=== PATIENT | female | born 1970 | race American Indian/Alaskan Native ===

== ENCOUNTER 2024-10-11 15:15 | Outpatient (REF) | payer MEDICAID, SELFPAY ==
--- OUTSIDE RECORDS SUMMARY | 2024-10-11 15:16 | XMS_ITS | Encounter Summary ---
Author Organization [employer] Address [address] [facility] 7t [place] [address] Care Team Providers Care Makeup Instructor Name Role Phone Tasha Benson MD Primary Care Provider + Yung Lindo MD Primary Care Provider [phone] Reason for Visit * Reason Comments Med Refill Encounter Details Date Type Department Care Team (Late st Contact Info) Description 02/16/2023 Refill [facility] CH[facility] MED & PEDS [address] [place], [place] [phone] Marita Kowalski DO [address] [place], [place] [phone] Hyperlipidemia, unspecified hyperlipidemia type Social History Tobacco Use Types Packs/Day Years Used Date Smoking Tobacco: Never Assessed Comments Unknown Sex and Gender Information Value Date Recorded Sex Assigned at Female 02/21/2022 10:15 AM EDT Legal Sex Female 10:15 AM EDT Gender Identity Female 02/21/2022 10:15 AM EDT Sexual Orientation Straight 02/21/2022 10 :15 AM EDT documented as of this encounter Plan of Treatment Upcoming Encounters Date Type Department Care Team (Late Contact Info) Description 11/04/2024 1:00 PM EDT Clinical Support [facility] DIABETES/NUTRITION [address] [place], [place] [phone] [address] [place] [address] 12/20/2024 11:15 AM EDT Office Visit [facility] MEDICINE [address] [place] [address] Name, MD Yung [address] [place] [address] 01/09/2025 2:00 PM EDT Office Visit [facility] OPTOMETRY [address] [place] [address] Sawyer, Deanna, OD [address] [place] [address] documented as of this encounter Visit Diagnoses Diagnosis Hyperlipidemia, unspecified hyperlipidemia type documented in this encounter Care Teams Makeup Instructor Relationship Specialty Start Date End Date Tasha Benson MD [address] [place] [phone] PCP - General Internal Medicine 08/10/23 10/22/23 Name, MD Yung [address] [place] [id number] PCP - General Internal Medicine 10/23/23 documented as of this encounter
[2024-10-11 16:08] LABS: MANUAL DIFF FLAG NO
[2024-10-11 16:15] LABS: Basophils Absolute Auto 0.1 X10*3/uL (0.0-0.2); Basophils Percent Auto 0.4 % (0-2); Eosinophils Absolute Auto 0.1 X10*3/uL (0.0-0.4); Eosinophils Percent Auto 0.7 % (0-4); Hematocrit 46.6 % (37.0-47.0); Hemoglobin 14.9 g/dl (12.0-16.0); Imm Gran Abs Auto 0.07 X10*3/uL (0.00-0.03); Imm Gran Pct Auto 0.6 % (0.0-0.4); Lymphocytes Absolute Auto 2.9 X10*3/uL (1.2-4.9); Lymphocytes Percent Auto 23.9 % (20-40); Mean Corpuscular Hemoglobin 29.5 pg (27.0-33.0); Mean Corpuscular Volume 92.3 fL (80.0-98.0); Mean Platelet Volume 11.2 fL (9.4-12.3); Monocytes Absolute Auto 0.9 X10*3/uL (0.1-1.2); Monocytes Percent Auto 7.4 % (2-11); Neutrophils Absolute Auto 8.1 x10*3/uL (2.0-8.3); Platelet Count 289 X10*3/uL (160-400); Red Blood Count 5.05 X10*6/uL (4.20-5.50); Red Cell Distribution Width 14.2 % (11.0-16.0); White Blood Count 12.1 X10*3/uL (4.8-10.8)
[2024-10-11 16:21] LABS: Appearance Urine Cloudy; Color Urine Dark Yellow; Glucose Urine UA Negative (Negative); Leukocyte Esterase Urine Trace (Negative); Nitrite Urine Negative (Negative); PH 5.5 (5.0-9.0); Specific Gravity - Urine 1.025 (1.005-1.025); UMIC TRIGGER UACC YES; Urine Blood Negative (Negative); Urine Ketones 15 mg/dL (Negative); Urine Protein 100 (2+) mg/dL (Neg-Trace)
[2024-10-11 16:33] LABS: Alanine Aminotransferase 60 U/L (0-31); Alkaline Phosphatase 126 U/L (39-117); Anion Gap 16 (12-20); Aspartate Amino Transferase 74 U/L (5-31); Bilirubin Total 0.8 mg/dL (0.0-1.0); Blood Urea Nitrogen 11 mg/dL (9-16); Calcium 9.4 mg/dL (8.4-10.2); Carbon Dioxide 25 mmol/L (22-29); Chloride 104 mmol/L (96-108); Cholesterol 215 mg/dL (<200); Estimated Glomerular Filt Rate 53; Glucose Random 136 mg/dL (60-115); HDL Cholesterol 47 mg/dL (>40); Iron 159 mcg/dL (30-160); LDL Cholesterol Calculated 139 mg/dL (<100); Percent Iron Saturation 45 % (15-50); Sodium 141 mmol/L (135-145); Total Iron Binding Capacity 353 mcg/dL (228-428); Total Protein 7.9 g/dL (6.5-8.0); Triglycerides 146 mg/dL (<150); Unsaturated Iron Binding 194 ug/dL
[2024-10-11 16:35] LABS: Estimated Average Glucose 137 mg/dL; Hemoglobin A1c % 6.4 % (<6.0); Total Hemoglobin (HGBA1C) 3911.4732 umol/L
[2024-10-11 16:51] LABS: Ferritin 128 ng/mL (10-250); TSH reflex Free T4 4.63 uIU/mL (0.32-4.0); Vitamin D 25-OH Total 11.3 ng/mL (>30)
[2024-10-11 16:55] LABS: Bacteria Urine 1+ (None Seen); Hyaline Casts Urine >20 /LPF (0-2); RBC Urine 0-2 /HPF (0-2); Squamous Epithelial Cell Urine >20 /HPF (0-2); UACC Culture Trigger YES
[2024-10-11 18:07] LABS: Free T4 (Free Thyroxine) 0.96 ng/dL (0.71-1.85)
== END 2024-10-11 15:16 | disposition home or self-care (01) ==
LOC: HO.HHCL 15:15
PROVIDERS: Visit Provider Internal Medicine Geriatric Medicine
DX: E66.01 Morbid (severe) obesity due to excess calories (principal); E03.9 Hypothyroidism, unspecified; F39 Unspecified mood [affective] disorder; Z68.44 Body mass index [BMI] 60.0-69.9, adult; M25.561 Pain in right knee; M25.562 Pain in left knee; G89.29 Other chronic pain; E78.5 Hyperlipidemia, unspecified; J45.20 Mild intermittent asthma, uncomplicated; R32 Unspecified urinary incontinence; Z86.2 Personal history of diseases of the blood and blood-forming organs and certain disorders involving the immune mechanism
CPT/HCPCS: 36415; 80053; 80061; 81001; 82306; 82728; 83036; 83540; 84439; 84443; 85025; 87086

== ENCOUNTER 2024-12-20 12:13 | Outpatient (REF) | payer MEDICAID, SELFPAY ==
--- NOTE | ~2024-12-20 | XR_ITS ---
Exam: X-ray, bilateral knees.XR KNEE 3 VIEWS BILATERAL TECHNIQUE: 3 view lower extremity joint, bilateral knees INDICATION: Chronic bilateral knee pain COMPARISON: None available. FINDINGS: RIGHT KNEE: There is moderate medial joint space narrowing. There are moderate medial joint space osteophytes. There are small patellofemoral joint osteophytes. There are minute lateral compartment osteophytes. There is no joint effusion. LEFT KNEE: There is moderate narrowing of the medial compartment and minimal narrowing of the lateral. There is mild lateral subluxation of tibia. Moderate osteophytes present along the medial joint line and patellofemoral joint. Small volume of synovial fluid is visible in the suprapatellar pouch. XR/XR Knee Tony 3V IMPRESSION: Right knee: Moderate osteoarthritis Left knee: Moderate osteoarthritis Electronically signed by: Julien Casanova MD 12/20/2024 01:20 PM EDT
--- OUTSIDE RECORDS SUMMARY | 2024-12-20 11:15 | XMS_ITS | Encounter Summary ---
Author Organization [employer] Address [address] [place] [address] 7 [place] [address] Care Team Providers Care Screen Tender Helper Name Role Phone Yung Lindo MD Primary Care Provider [phone] Reason for Referral * Consultation (Routine) - Pending Review Specialty Diagnoses / Procedures Referred By Contac t Referred To Contact Sleep Medicine Diagnoses Morbid obesity with BMI of 60.0-69.9, adult (CMS/HCC) Snoring Excessive daytime sleepiness NameYung MD [address] [place] [address] Phone: tel: fax: Referral ID Status Reason Start Date Expiration Date Visits Requested Visits Authorized [id number] Pending Review Specialty Services Required 12/20/2024 12/20/2025 1 1 Reason for Visit * Reason Comments Follow-up Encounter Details Date Type Department Care Team (Late st Contact Info) Description 12/20/2024 11:15 AM EDT Office Visit [facility] MEDICINE [address] [place] [phone] Yung Lindo MD [address] [place] [phone] Morbid obesity with BMI of 60.0-69.9, adult (CMS/HCC) (Primary Dx); Prediabetes; Fatty liver; Snoring; Excessive daytime sleepiness; Chronic pain of both knees; Acute otitis externa of left ear, unspecified type; Vitamin D deficiency Social History Tobacco Use Types Packs/Day Years Used Date Smoking Tobacco: Never Smokeless Tobacco: Never Tobacco Cessation:Counseling Given: Not Answered Alcohol Use Standard Drinks/Week Comments Never 0 (1 standard drink = 0.6 oz pur e alcohol) Depression Answer Date Recorded Patient Health Questionnaire-9 Score 15 09/23/2024 Patient Health Questionnaire-9 Score 15 09/23/2024 Last PHQ-9: Questionnaire Data Not on file 0 09/23/2024 Housing Stability Answer Date Recorded What is your housing situation today? I have alex beard 12/20/[address] you li ve. Do you have problems with any of the following? None of the above 12/20/2024 Food Insecurity Answer Date Recorded Within the past 12 months, y ou worried that your food would run out before you got money to buy more: Never True 12/20/2024 Within the past 12 months,th e food you bought just didn't last and you didn't have enough money to get more: Never True Transportation Answer Date Recorded In the past 12 months, has l ack of transportation kept you from medical appts, meetings, work or from getting things needed for daily living? Yes, it has kept me from medical appointments or getting medications.;Yes, it has kept me from non-medical meetings, work, or getting things that I need 12/20/2024 Utilities Answer Date Recorded In the past 12 months, has t he electric, gas, oil or water company threatened to shut off services in your home? No 12/20/2024 Depression Answer Date Recorded Patient Health Questionnaire-2 Score 6 09/23/2024 Internet Access Answer Date Recorded Internet Access Q1 Yes 12/20/2024 Internet Access Q2 Not on file 12/20/2024 Comments Unknown Sex and Gender Information Value Date Recorded Sex Assigned at Female 02/21/2022 10:15 AM EDT Legal Sex Female 10:15 AM EDT Gender Identity Female 02/21/2022 10:15 AM EDT Sexual Orientation Straight 02/21/2022 10 :15 AM EDT documented as of this encounter Last Filed Vital Signs Vital Sign Reading Time Taken Comments Blood Pressure 130/82 12/20/2024 11:26 AM EDT Pulse 102 12/20/2024 11:26 AM EDT Temperature 36.5 C (97.7 F) 12/20/2024 11:26 AM EDT Respiratory Rate 12 12/20/2024 11:26 AM EDT Oxygen Saturation 99% 12/20/2024 11:26 AM EDT Inhaled Oxygen Concentration - - Weight 159 kg (351 lb 6.4 oz) 12/20/2024 11:26 A M EDT Height 149.9 cm (4' 11 ) 12/20/2024 11:26 AM EDT Body Mass Index 70.97 12/20/2024 11:26 AM EDT documented in this encounter Progress Notes * Yung Lindo MD - 12/20/2024 11:15 AM EDT Subjective Patient ID: Tiffanie Palumbo is a 54 y.o. female who presents for Follow-up. Patient comes for a follow-up visit, she is accompanied by her niece. Prior to speaking with me shespoke with behavioral health to arrange for outpatient therapy appointment because of her depression/anxiety. Today we discussed the results of her recent blood work. She has prediabetes. She denies any symptoms of hyperglycemia like polyuria or polydipsia. Her npkvy-jq-eeci hemoglobin A1c is actually bettertoday compared to her most recent labs. She has mild transaminitis that is most likely related to fatty liver due to her obesity and prediabetes. I have recommended to go for blood work to check for viral hepatitis and ultrasound of the liver. She has low vitamin D. She has not started on the vitamin D supplements prescribed previously and she is encouraged to do so. She has typical symptoms of obstructive sleep apnea including daytime sleepiness, lack of refreshing sleep, snoring. She falls asleep watching TV or reading. She does not falls asleep driving or talking to people. She agreed with referral to sleep medicine. She also has chronic bilateral knee pain when she walks most likely related to her morbid obesity and DJD. Review of Systems Constitutional: Negative for chills and fever. HENT: Negative for sore throat. Respiratory: Negative for cough, shortness of breath and wheezing. Cardiovascular: Negative for chest pain, palpitations and leg swelling. Gastrointestinal: Negative for abdominal pain. Musculoskeletal: Chronic bilateral pain knee pain worse with walking. Psychiatric/Behavioral: Negative for self-injury and suicidal ideas. The patient is nervous/anxious. Objective Vitals: 12/20/24 1126 BP: 130/82 BP Location: Left arm Patient Position: Sitting BP Cuff Size: Thigh Pulse: 102 Resp: 12 Temp: 97.7 ??F (36.5 ??C) TempSrc: Temporal SpO2: 99% Weight: 351 lb 6.4 oz (159 kg) Height: 4' 11 (1.499 m) Physical Exam Constitutional: Appearance: Normal appearance. She is obese. Cardiovascular: Rate and Rhythm: Normal rate and regular rhythm. Heart sounds: No murmur heard. No gallop. Pulmonary: Effort: Pulmonary effort is normal. No respiratory distress. Breath sounds: Normal breath sounds. No wheezing. Musculoskeletal: Right lower leg: No edema. Left lower leg: No edema. Neurological: Mental Status: She is alert. Latest Reference Range & Units 10/11/24 15:17 pH, Urine 5.0 - 9.0 5.5 Glucose 60 - 115 mg/dL 136 (H) Urea Nitrogen (BUN) 9 - 16 mg/dL 11 Creatinine, Serum 0.5 - 1.4 mg/dL 1.07 Sodium 135 - 145 mmol/L 141 Potassium 3.3 - 5.1 mmol/L 4.0 Chloride 96 - 108 mmol/L 104 Carbon Dioxide 22 - 29 mmol/L 25 Calcium 8.4 - 10.2 mg/dL 9.4 Albumin Level 3.5 - 5.0 g/dL 4.0 Bilirubin, Total 0.0 - 1.0 mg/dL 0.8 AST 5 - 31 U/L 74 (H) ALT 0 - 31 U/L 60 (H) Anion Gap 12 - 20 16 Total Protein 6.5 - 8.0 g/dL 7.9 Cholesterol <200 mg/dL 215 (H) HDL Cholesterol >40 mg/dL 47 LDL Cholesterol Calculated <100 mg/dL 139 (H) Triglycerides <150 mg/dL 146 Iron 30 - 160 mcg/dL 159 Ferritin 10 - 250 ng/mL 128 Vitamin D 25-OH Total >30 ng/mL 11.3 (L) Red Blood Count 4.20 - 5.50 X10*6/uL 5.05 Hemoglobin 12.0 - 16.0 g/dl 14.9 Hematocrit 37.0 - 47.0 % 46.6 Mean Corpuscular Volume 80.0 - 98.0 fL 92.3 Mean Corpuscular Hemoglobin 27.0 - 33.0 pg 29.5 Mean Corpuscular HGB Conc 31.0 - 35.0 g/dl 32.0 Red Cell Distribution Width 11.0 - 16.0 % 14.2 Platelet Count 160 - 400 X10*3/uL 289 Eosinophils Percent Auto 0 - 4 % 0.7 Lymphocytes Absolute Auto 1.2 - 4.9 X10*3/uL 2.9 Basophils Absolute Auto 0.0 - 0.2 X10*3/uL 0.1 Monocytes Absolute Auto 0.1 - 1.2 X10*3/uL 0.9 Neutrophils Absolute Auto 2.0 - 8.3 x10*3/uL 8.1 Neutrophils Percent Auto 45 - 73 % 67.0 Basophils Percent Auto 0 - 2 % 0.4 Eosinophils Absolute Auto 0.0 - 0.4 X10*3/uL 0.1 Lymphocytes Percent Auto 20 - 40 % 23.9 Monocytes Percent Auto 2 - 11 % 7.4 Imm Gran Abs Auto 0.00 - 0.03 X10*3/uL 0.07 (H) Imm Gran Pct Auto 0.0 - 0.4 % 0.6 (H) Hemoglobin A1c <6.0 % 6.4 (H) TSH reflex Free T4 0.32 - 4.0 uIU/mL 4.63 (H) Color Urine Dark Yellow Appearance Urine Cloudy Specific Mobile - Urine 1.005 - 1.025 1.025 Nitrite Urine Negative Negative Leukocyte Esterase Urine Negative Trace ! RBC Urine 0 - 2 /HPF 0-2 Hyaline Casts, Urine 0 - 2 /LPF >20 Alkaline Phosphatase 39 - 117 U/L 126 (H) ESTIMATED AVERAGE GLUCOSE mg/dL 137 Estimated Glomerular Filt Rate 53 Free T4 (Free Thyroxine) 0.71 - 1.85 ng/dL 0.96 Glucose Urine UA Negative mg/dL Negative Mean Platelet Volume 9.4 - 12.3 fL 11.2 NRBC Abs Auto 0.0 - 0.012 X10*3/uL 0.000 NRBC Pct Auto 0.0 - 0.2 /100WBC 0.0 Percent Iron Saturation 15 - 50 % 45 Total Iron Binding Capacity 228 - 428 mcg/dL 353 Unsaturated Iron Binding ug/dL 194 Urine Bacteria None Seen 1+ Urine Blood Negative Negative Urine Ketones Negative mg/dL 15 Urine Protein Neg-Trace mg/dL 100 (2+) ! Urine Squamous Epithelial Cell 0 - 2 /HPF >20 Urine WBC 0 - 5 /HPF 6-10 ! White Blood Count 4.8 - 10.8 X10*3/uL 12.1 (H) (H): Data is abnormally high (L): Data is abnormally low !: Data is abnormal Assessment/Plan Diagnoses and all orders for this visit: Morbid obesity with BMI of 60.0-69.9, adult ([facility]) Comments: The patient has morbid obesity with a BMI of 70 and associated comorbidities including prediabetes,fatty liver, knee DJD and I strongly suspect she also has obstructive sleep apnea. She does not have any personal history of pancreatitis, no personal or family history of thyroid cancer. I have recommended treatment with Zepbound for weight loss. We discussed the benefits and side effects of the medication. I explained to the patient medication will require prior authorization process, dose has to be increased gradually, and she is to call us for severe nausea, vomiting, abdominal pain, constipation or diarrhea. She was referred to sleep medicine I recommended acetaminophen for knee pain and to go for x-rays of the knees ordered at previous visits She will go for blood work to check viral hepatitis testing and ultrasound of the liver Orders: - Referral to Sleep Medicine; Future Prediabetes - POCT HGB A1C Fatty liver Snoring - Referral to Sleep Medicine; Future Excessive daytime sleepiness - Referral to Sleep Medicine; Future Chronic pain of both knees - XR Knee 4+ Views Bilateral; Future Acute otitis externa of left ear, unspecified type Comments: I did not the visit she complained of several days of left ear discomfort and discharge. No fevers or chills, no decreased hearing, no history of putting her head underwater. She admits to frequent use of Q-tips. She had evidence of left- sided otitis externa on exam. I recommended treatment with Cortisporin. Vitamin D deficiency Comments: I recommended to use the vitamin D supplement she was prescribed recently. I will recheck her levels in future visits. Other orders - Tirzepatide-Weight Management (Zepbound) 2.5 MG/0.5ML solution auto-injector; Inject 0.5 mL (2.5 mg) under the skin 1 (one) time per week. - glyxiqul-huligksyi-daydcrbvkbzegu (Cortisporin) 3.5-65867-2 otic suspension; Administer 3-4 dropsinto affected ear(s) 4 times daily for 10 days. Future Appointments Date Time Provider Department Center 01/09/2025 2:00 PM Deanna Jacques, OD [facility] documented in this encounter Plan of Treatment Upcoming Encounters Date Type Department Care Team (Late st Contact Info) Description 01/09/2025 2:00 PM EDT Office Visit [facility] OPTOMETRY [address] [place], [place] [phone] Deanna Jacques, OD [address] [place] [address] 03/18/2025 11:30 AM EST Office Visit [facility] MEDICINE [address] [place] [address] Yung Lindo MD [address] [place] [address] Scheduled Orders Name Type Priority Associated Diagnoses Orde r Schedule XR Knee 4+ Views Bilateral Imaging Routine Chronic pain of both knees Expected: 12/20/2024, Expires: 12/20/2025 Scheduled Referrals Name Type Priority Associated Diagnoses Orde r Schedule Referral to Sleep Medicine Outpatient Referral Routine Morbid obesity with BMI of 60.0-69.9, adult (CMS/[facility]) Snoring Excessive daytime sleepiness Expected: 12/20/2024 (Approximate), Expires: 12/20/2025 documented as of this encounter Procedures Procedure Name Priority Date/Time Associated Diagnosis Comments POCT GLYCATED HEMOGLOBIN, TOTAL Routine 12/20/2024 11:57 AM EDT Prediabetes documented in this encounter Results * (ABNORMAL) POCT HGB A1C (12/20/2024 11:57 AM EDT) Hemoglobin A1C 6.2(A) 4.0 - 5.7 % QC Media Lot # [id number] Lot# Expiration Date [id number] Blood 12/20/2024 11:5 7 AM EDT Yung Name MD POINT OF CARE TEST ENTER/EDIT OR DERABLES Final Result documented in this encounter Visit Diagnoses Diagnosis Morbid obesity with BMI of 60.0-69.9, adult (CMS/HCC)- Primary Prediabetes Other abnormal glucose Fatty liver Other chronic nonalcoholic liver disease Snoring Other dyspnea and respiratory abnormality Excessive daytime sleepiness Chronic pain of both knees Acute otitis externa of left ear, unspecified type Vitamin D deficiency documented in this encounter Additional Health Concerns Assessment Noted Time PHQ-9 Depression Total Score: 15 025 11:44 AM EDT documented as of this encounter Care Teams Screen Tender Helper Relationship Specialty Start Date End Date Name, MD Yung [address] [place] [address] PCP - General Internal Medicine 10/23/23 documented as of this encounter
--- OUTSIDE RECORDS SUMMARY | 2024-12-20 12:55 | XMS_ITS | Clinical Summary ---
Author Organization [facility] Address [address] [place] [address] Care Team Providers Care Interventional Technologist Name Role Phone Unavailable Primary Care Provider Unavailabl e Source Comments PLEASE NOTE, if this patient is a minor, it may be UNLAWFUL to discuss sensitive information that is contained in these records (such as FAMILY PLANNING, MENTAL HEALTH or SUBSTANCE ABUSE) with the minor patient's parent or other person without the patient's specific authorization.[facility] Social History Tobacco Use Types Packs/Day Years Used Date Smoking Tobacco: Never Assessed Comments Unknown Sex and Gender Information Value Date Recorded Sex Assigned at Female 10/23/2024 8:42 AM PDT Legal Sex Female 8:42 AM PDT Gender Identity Female 10/23/2024 8:42 AM PDT Sexual Orientation Not on file Plan of Treatment Upcoming Encounters Date Type Department Care Team (Late st Contact Info) Description 12/31/2024 11:00 AM EDT Behavioral Health Visit [facility] [address] [place] [address] [place] [phone] Alonso Kuhn, [address] [place] [phone] Health Maintenance Due Date Last Done Comments Anxiety Screening 1970 HPV Screening 1969 Hepatitis C Screening 1969 Pap + HPV 1969 Tobacco Screening 1969 HIV Screening 1984 Hypertension Screening (#1) 1987 Cervical Cancer Screening 1990 Pap Smear 1990 Breast Cancer Screening (Mammogram) 2009 CT Colonography 2014 Colonoscopy 2014 Colorectal Cancer Screening 2014 FIT/gFOBT 2014 Fecal DNA 2014 Flexible Sigmoidoscopy 2014 Imm-Zoster, Recombinant (1 of 2) 2019 [id number]-[id number]-31 ( season) 2023 021, 06/26/2020 Alcohol and Drug Screen 04/24/2024 Depression Annual Screen 04/24/2024 Imm-Influenza (#1) 2024 01/08/2020, 0 01/09/2019, 02/07/2018, Additional history exists Diabetes Screening 10/12/2027 10/11/2024, 0 10/11/2024, 10/11/2024 Lipid Screening 10/11/2029 10/11/2024 Imm-DTaP/Tdap/Td (3 - Td or Tdap) 01/05/2031 021, 08/13/2010 Imm-Hepatitis B Completed 04/19/2012, 10/24, 10/07/2011 Imm-Pneumococcal 50+ Completed 11/01/2023 Cervical Ablation/Cold-Knife Conization Discontinued Cervical Cryotherapy Discontinued Colposcopy Discontinued Endometrial Biopsy Discontinued Excision/Leep Discontinued HPV Genotyping Discontinued Vaginal Pap Discontinued Vulvoscopy Discontinued Insurance [facility]
--- OUTSIDE RECORDS SUMMARY | 2024-12-20 12:55 | XMS_ITS | Encounter Summary ---
Author Organization [employer] Address [address] [facility] 7[address] [place] [address] Care Team Providers Care Tool Planner Name Role Phone Tasha Benson MD Primary Care Provider + Yung Lindo MD Primary Care Provider [phone] Reason for Visit * Reason Comments Med Refill Encounter Details Date Type Department Care Team (Late Contact Info) Description 02/16/2023 Refill [facility] MED & PEDS [address] [place], [place] [phone] Marita Kowalski, DO [address] [place], [place] [phone] Hyperlipidemia, unspecified hyperlipidemia type Social History Tobacco [...] Department Care Team (Late Contact Info) Description 01/09/2025 2:00 PM EDT Office Visit [facility] OPTOMETRY [address] [place], [place] [phone] Deanna Jacques, OD [address] [place], [place] [phone] 03/18/2025 11:30 AM EST Office Visit [facility] MEDICINE [address] [place] [address] Name, MD Yung [address] [place] [address] documented as of this encounter Visit Diagnoses Diagnosis Hyperlipidemia, unspecified hyperlipidemia type documented in this encounter Care Teams Tool Planner Relationship Specialty Start Date End Date Tasha Benson MD [address] [place] [address] PCP - General Internal Medicine 08/10/23 10/22/23 Name, MD Yung [address] [place] [address] PCP - General Internal Medicine 10/23/23 documented as of this encounter
--- OUTSIDE RECORDS SUMMARY | 2024-12-20 12:55 | XMS_ITS | Clinical Summary ---
Author Organization [employer] Address [address] [facility] [address] [place] [address] Care Team Providers Care Compensation Intern Name Role Phone Name, Yung MENDEZ Primary Care Provider [phone] Allergies No known active allergies Medications * This document contains information received from the source organization and may not represent a complete record from that organization. ferrous sulfate (FeroSul) 325 (65 Fe) MG tablet TAKE 1 TABLET BY MOUTH EVERY DAY AT NOON 90 tablet 5 Active simvastatin (Zocor) 40 MG tabletIndications: Hyperlipidemia, unspecified hyperlipidemia type TAKE 1 TABLET BY MOUTH EVERY DAY AT BEDTIME 90 tablet 5 Active propranolol (Inderal) 40 MG tablet Take 1 tablet (40 mg) by mouth Once per day. 90 tablet 5 Active lisinopril 20 MG tablet TAKE 1 TABLET BY MOUTH EVERY DAY IN THE MORNING 90 tablet 5 Active levothyroxine (Synthroid, Levoxyl) 88 MCG tablet TAKE 1 TABLET BY MOUTH EVERY MORNING 90 tablet 3 5 Active FLUoxetine (PROzac) 20 MG capsuleIndications :Mood disorder (CMS/HCC) TAKE 2 CAPSULES BY MOUTH EVERY DAY IN THE EVENING 60 capsule 3 5 Active albuterol (Ventolin HFA) 108 (90 Base) MCG/ACT inhalerIndications :Mild intermittent asthma, unspecified whether complicated INHALE 2 PUFFS BY MOUTH EVERY 4 TO 6 HOURS NEEDED 18 g 5 Active cholecalciferol (Vitamin D-3) 25 MCG (1000 UT) tabletIndications: Vitamin D Deficiency Take 1 tablet (25 mcg) by mouth Once per day. 90 tablet 3 5 026 Active Tirzepatide-Weight Management (Zepbound) 2.5 MG/0.5ML solution auto-injector Inject 0.5 mL (2.5 mg) under the skin 1 (one) time per week. 2 mL 5 025 Active neomycin-polymyxin -hydrocortisone (Cortisporin) 3.5-39923-5 otic suspension Administer 3-4 drops into affected ear(s) 4 times daily for 10 days. 10 mL 5 025 Active Active Problems Problem Noted Date Diagnosed Date Prediabetes 10/16/2024 Low vitamin D level 10/16/2024 Moderate recurrent major depression 08/30/2024 FRANCISCO JAVIER (generalized anxiety disorder) 08/30/2024 Morbid obesity with BMI of 60.0-69.9, adult 10/22 Acute otitis externa 04/12/2018 Elevated liver enzymes 11/01/2017 Dystrophia unguium 11/01/2017 Hyperuricemia 01/03/2017 Vitamin D deficiency 01/03/2017 Positive BREN (antinuclear antibody) 01/03/2017 Mood disorder 11/04/2016 Mild intermittent asthma 11/04/2016 Migraine 11/04/2016 Hyperlipidemia 11/04/2016 Benign essential hypertension 11/04/2016 Aphakia 11/04/2016 Anemia 11/04/2016 Acquired hypothyroidism 11/04/2016 Seasonal allergic rhinitis 11/04/2016 Multiple joint pain 11/04/2016 Encounters * This document contains information received from the source organization and may not represent a complete record from that organization. Date Type Department Care Team Description 12/20/2024 11:15 AM EDT Office Visit [facility] MEDICINE [address] [place] [phone] Name, MD Yung Morbid obesity with BMI of 60.0-69.9, adult ([facility]) (Primary Dx); Prediabetes; Fatty liver; Snoring; Excessive daytime sleepiness; Chronic pain of both knees; Acute otitis externa of left ear, unspecified type; Vitamin D deficiency 12/20/2024 Travel 12/19/2024 Telephone [facility] MEDICINE [address] [place], [place] [phone] Manjit Castillo MA CHARTPREP 11/11/2024 Telephone [facility] [place] [address] Yung Lindo MD Referral 11/04/2024 Telephone [facility] [place] [address] Yung Lindo MD Nurse Triage 10/16/2024 Results [address]-Up [address] [place] [address] Yung Lindo MD TSH W/Reflex to FT4, Comprehensive Metabolic Panel, Vitamin D, 25-Hydroxy, Total, Immunoassay, Additional followed-up results: 3 10/14/2024 Telephone [facility] [place] [address] Yung Lindo MD Appointment Confirmation 10/11/2024 2:00 PM EDT Nutrition [facility] DIABETES/[place] [address] Mood disorder ([facility]) 10/11/2024 Orders Only [facility] [place] [address] Yung Lindo MD 10/11/2024 Travel from Last 3 Months Immunizations Immunization Administration Dates Next Due Hep B, adult 04/19/2012,11/21/2011,10/07/2011 INFLUENZA INJECTABLE QUADRIV ALANT CCIIV4 MDCK Multi-dose vial 01/09/2019 Influenza Injectable Quadriv alant Preservative Free IIV4 MDCK 01/08/2020 Influenza injectable quadriv alent IIV4 with preservative 02/07/2018,01/14/2015 Influenza, IIV3, injectable 03/01/2010 Influenza, Split (incl. jacqueline fied surface antigen) 12/27/2012 Pneumococcal Conjugate PCV 20 11/01/2023 Tdap 01/05/2021,08/13/2010 Family History Medical History Relation Name Comments Breast cancer Sister Relation Name Status Comments Sister Social History Tobacco Use Types Packs/Day Years [...] Orientation Straight 02/21/2022 10 :15 AM EDT Last Filed Vital Signs Vital Sign Reading [...] Mass Index 70.97 12/20/2024 11:26 AM EDT Plan of Treatment Upcoming Encounters Date Type Department Care Team (Late st Contact Info) Description 01/09/2025 2:00 PM EDT Office Visit [facility] OPTOMETRY [address] [place] [address] Deanna Jacques, OD [address] [place] [address] 03/18/2025 11:30 AM EST Office Visit [facility] MEDICINE [address] [place] [address] Name, MD Yugn [address] [place] [address] Health Maintenance Due Date Last Done Comments CT Colonography 1969 Colonoscopy 1969 Colorectal Cancer Screening 1969 FIT DNA/Cologuard 1969 FIT 1969 FOBT 1969 HIV Screening 1969 Sigmoidoscopy 1969 Hepatitis C Screening 1987 Hepatitis A Vaccines (1 of 2 - Risk 2-dose series) 1988 Pap Smear 1990 Cervical Cancer Screening 1999 HPV/Cotest 1999 Mammogram 2009 Dental X-Ray: Full Mouth 01/25/2012 01/23/2009 Dental Oral Exam 06/17/2018 12/14/2017, 07/09/2013 Zoster Vaccines (1 of 2) 2019 Dental Prophylaxis 01/23/2021 07/23/2020, 1 05/30/2018, 09/24/2018, Additional history exists Dental X-Ray: Bitewings 11/18/2021 11/18/19 21, 07/23/2020, 12/14/2017, Additional history exists COVID-19 Vaccine ( season) 2023 07/24/2020, 06/26/2020 Influenza Vaccine (#1) 2024 0, 01/09/2019, 02/07/2018, Additional history exists Depression Monitoring 03/25/2025 09/23/2024, 025 Alcohol/Substance Use Screening 08/30/2025 08/30/2024 Disability Screening 08/30/2025 08/30/2024 Diabetes: Hemoglobin A1C 12/20/2025 12/20/2024, 09/23 SDOH Screening 12/20/2025 12/20/2024 Tobacco Screening 12/20/2025 12/20/2024 Lipid Panel 10/11/2029 10/11/2024 DTaP/Tdap/Td Vaccines (3 - Td or Tdap) 01/05/2031 01/05/2021, 08/13/2010 RSV Patients and Patients Aged 60 years or older (1 - 1-dose 75+ series) 2044 Hepatitis B Vaccines Completed 04/19/2012, 11/21/2011, 10/07/2011 Pneumococcal Vaccine: 50+ Years Completed 11/01/2023 HIB Vaccines Aged Out No longer eligi ble based on patient's age to complete this topic HPV Vaccines Aged Out No longer eligi ble based on patient's age to complete this topic IPV Vaccines Aged Out No longer eligi ble based on patient's age to complete this topic Meningococcal B Vaccine Aged Out No l onger eligible based on patient's age to complete this topic Meningococcal Vaccine Aged Out No rayna rony eligible based on patient's age to complete this topic RSV under 20 months Aged Out No longe r eligible based on patient's age to complete this topic Rotavirus Vaccines Aged Out No longer eligible based on patient's age to complete this topic Procedures Procedure Name Priority Date/Time Associated Diagnosis Comments POCT GLYCATED HEMOGLOBIN, TOTAL Routine 12/20/2024 11:57 AM EDT Prediabetes CULTURE, URINE, ROUTINE Routine 10/11/2024 5:12 PM EDT T4, FREE Routine 10/11/2024 3:17 PM EDT HEMOGLOBIN A1C Routine 10/11/2024 3:17 PM EDT Morbid obesity with BMI of 60.0-69.9, adult ([facility]) Urinary incontinence, unspecified type LIPID PANEL, STANDARD Routine 10/11/2024 3:17 PM EDT Mood disorder ([facility]) Morbid obesity with BMI of 60.0-69.9, adult ([facility]) Acquired hypothyroidism Chronic pain of both knees Hyperlipidemia, unspecified hyperlipidemia type Mild intermittent asthma, unspecified whether complicated Urinary incontinence, unspecified type History of anemia URINALYSIS, COMPLETE, WITH REFLEX TO CULTURE Routine 10/11/2024 3:17 PM EDT Mood disorder ([facility]) Morbid obesity with BMI of 60.0-69.9, adult ([facility]) Acquired hypothyroidism Chronic pain of both knees Hyperlipidemia, unspecified hyperlipidemia type Mild intermittent asthma, unspecified whether complicated Urinary incontinence, unspecified type History of anemia VITAMIN D,25-OH,TOTAL,IA Routine 10/11/2024 3:17 PM EDT Mood disorder ([facility]) Morbid obesity with BMI of 60.0-69.9, adult ([facility]) Acquired hypothyroidism Chronic pain of both knees Hyperlipidemia, unspecified hyperlipidemia type Mild intermittent asthma, unspecified whether complicated Urinary incontinence, unspecified type History of anemia COMPREHENSIVE METABOLIC PANEL Routine 10/11/2024 3:17 PM EDT Mood disorder ([facility]) Morbid obesity with BMI of 60.0-69.9, adult ([facility]) Acquired hypothyroidism Chronic pain of both knees Hyperlipidemia, unspecified hyperlipidemia type Mild intermittent asthma, unspecified whether complicated Urinary incontinence, unspecified type History of anemia TSH W/REFLEX TO FT4 Routine 10/11/2024 3 :17 PM EDT Mood disorder ([facility]) Morbid obesity with BMI of 60.0-69.9, adult ([facility]) Acquired hypothyroidism Chronic pain of both knees Hyperlipidemia, unspecified hyperlipidemia type Mild intermittent asthma, unspecified whether complicated Urinary incontinence, unspecified type History of anemia IRON AND TOTAL IRON BINDING CAPACITY Routine 10/11/2024 3:17 PM EDT Morbid obesity with BMI of 60.0-69.9, adult [facility] FERRITIN Routine 10/11/2024 3:17 PM EDT Morbid obesity with BMI of 60.0-69.9, adult ([facility]) CBC WITH AUTO DIFFERENTIAL Routine 10/11/2024 3:17 PM EDT Morbid obesity with BMI of 60.0-69.9, adult ([facility]) BITEWING - SINGLE RADIOGRAPHIC IMAGE Routine 11/17/2020 12:00 AM EDT PROPHYLAXIS - ADULT Routine 07/23/2020 1 2:00 AM EDT PERIODIC ORAL EVALUATION - ESTABLISHED PATIENT Routine 12/14/2017 12:00 AM EDT INTRAORAL - COMPLETE SERIES OF RADIOGRAPHIC IMAGES Routine 01/23/2009 12:00 AM EDT from Last 3 Months or Most Recently Relevant to Health Maintenance Results * (ABNORMAL) POCT HGB A1C (12/20/2024 11:57 AM EDT) Hemoglobin A1C 6.2(A) 4.0 - 5.7 % QC Media Lot # [id number] Lot# Expiration Date [id number] Blood 12/20/2024 11:5 7 AM EDT us Yung Lindo MD POINT OF CARE TEST ENTER/EDIT OR DERABLES Final Result * Culture, Urine, Routine (10/11/2024 5:12 PM EDT) Urine Urine specimen obtained by clean catch procedure / Unknown 10/11/2024 5:12 PM EDT 10/11/2024 5:12 PM EDT Comment:[facility] Narrative [facility] - 10/13/2024 10:12 AM EDT Urine Culture Report Result Urine Culture < 10,000 cfu/ml Urine Culture Mixed bacterial sandra characteristic of Urine Culture urogenital contamination. Specimen Source: Urine clean catch us Yung Lindo MD LAB MICROBIOLOGY - GENERAL ORDER JOSÉ MIGUEL Final Result [facility] [address] [place] [phone] * (ABNORMAL) Vitamin D, 25-Hydroxy, Total, Immunoassay (10/11/2024 3:17 PM EDT) Vitamin D 25-OH Total 11.3(L) >30 ng/mL [facility] Comment: Health Based Reference Values*< 20 ng/mL Flaypmwsx57-55 ng/mL Insufficient> 30 ng/mL Sufficient*Pedro Pablo BURK. N Engl J Med. 2007;357:266-280There is no well-established upper level of normal vitamin Dlevels. Some laboratories use 50 ng/mL as an upper limit ofnormal. However, toxicity is patient-dependent and may occurat any level. Careful correlation with the patient'spresentation is necessary and, if there is concern forvitamin D toxicity, treatment should be consideredirrespective of the serum level.Care must be taken in interpreting Vitamin D results fromdifferent laboratories and methodologies. Published datademonstrated that results from patients undergoinghemodialysis may show a negative bias when tested withvarious automated 25-OH vitamin D assays when compared toLC-MS/MS.When testing samples from patients whose predominant form ofVitamin D is Vitamin D2, such as patients receiving VitaminD2 supplementation, results that are subtherapeutic shouldbe confirmed with another method such as LC-MS/MS. Blood Venous blood specimen / Unknown 10/11/2024 3:17 PM EDT 10/11/2024 4:05 PM EDT us Yung Name LAB BLOOD ORDERABLES Final Resul t [facility] [address] [place] [address] [phone] * (ABNORMAL) Urinalysis, Complete, with Reflex to Culture (10/11/2024 3:17 PM EDT) Color Urine Dark Yellow [facility] Appearance Urine Cloudy [facility] PH 5.5 5.0 - 9.0 [facility] Glucose Urine UA Negative Negative mg/dL [facility] Urine Blood Negative Negative [facility] Specific Campus - Urine 1.025 1.005 - 1.025 [facility] Urine Protein 100 (2+)(A) Neg-Trace mg/dL [facility] Urine Ketones 15 Negative mg/dL [facility] Nitrite Urine Negative Negative [facility] Leukocyte Esterase Urine Trace(A) Negative [facility] RBC Urine 0-2 0 - 2 /HPF [facility] Urine WBC 6-10(A) 0 - 5 /HPF [facility] Urine Squamous Epithelial Cell >20 0 - 2 /HPF [facility] Urine Bacteria 1+ None Seen [facility] Hyaline Casts, Urine >20 0 - 2 /LPF [facility] Urine 10/11/2024 3:17 PM EDT 10/11/2024 4:09 PM EDT Narrative [facility] - 10/11/2024 4:55 PM EDT Urine, Clean Catch us Yung Lindo MD LAB URINE ORDERABLES Final Resul t Performing Organization Address [facility] de Phone Number [facility] [address] [place] [phone] * (ABNORMAL) TSH W/Reflex to FT4 (10/11/2024 3:17 PM EDT) TSH reflex Free T4 4.63(H) 0.32 - 4.0 uIU/mL [facility] Blood Venous blood specimen / Unknown 10/11/2024 3:17 PM EDT 10/11/2024 4:05 PM EDT us Yung Lindo MD LAB BLOOD ORDERABLES Final Resul t Performing Organization Address [facility] Co de Phone Number [facility] [address] [place] [phone] * (ABNORMAL) CBC auto differential (10/11/2024 3:17 PM EDT) White Blood Count 12.1(H) 4.8 - 10.8 X10*3/uL [facility] Red Blood Count 5.05 4.20 - 5.50 X10*6/uL [facility] Hemoglobin 14.9 12.0 - 16.0 g/dl [facility] Hematocrit 46.6 37.0 - 47.0 % [facility] Mean Corpuscular Volume 92.3 80.0 - 98.0 fL [facility] Mean Corpuscular Hemoglobin 29.5 27.0 - 33.0 pg [facility] Mean Corpuscular HGB Conc 32.0 31.0 - 35.0 g/dl [facility] Red Cell Distribution Width 14.2 11.0 - 16.0 % [facility] Platelet Count 289 160 - 400 X10*3/uL [facility] Mean Platelet Volume 11.2 9.4 - 12.3 fL [facility] Neutrophils Percent Auto 67.0 45 - 73 % [facility] Imm Gran Pct Auto 0.6(H) 0.0 - 0.4 % [facility] Lymphocytes Percent Auto 23.9 20 - 40 % [facility] Monocytes Percent Auto 7.4 2 - 11 % [facility] Eosinophils Percent Auto 0.7 0 - 4 % [facility] Basophils Percent Auto 0.4 0 - 2 % [facility] NRBC Pct Auto 0.0 0.0 - 0.2 /100WBC [facility] Neutrophils Absolute Auto 8.1 2.0 - 8.3 x10*3/uL [facility] Imm Gran Abs Auto 0.07(H) 0.00 - 0.03 X10*3/uL [facility] Lymphocytes Absolute Auto 2.9 1.2 - 4.9 X10*3/uL [facility] Monocytes Absolute Auto 0.9 0.1 - 1.2 X10*3/uL [facility] Eosinophils Absolute Auto 0.1 0.0 - 0.4 X10*3/uL [facility] Basophils Absolute Auto 0.1 0.0 - 0.2 X10*3/uL [facility] NRBC Abs Auto 0.000 0.0 - 0.012 X10*3/uL [facility] Blood Venous blood specimen / Unknown 10/11/2024 3:17 PM EDT 10/11/2024 4:05 PM EDT us Yung Lindo MD LAB BLOOD ORDERABLES Final Resul t Performing Organization Address [facility] Co de Phone Number [facility] [address] [place] [phone] * Iron And Total Iron Binding Capacity (10/11/2024 3:17 PM EDT) Iron 159 30 - 160 mcg/dL [facility] Total Iron Binding Capacity 353 228 - 428 mcg/dL [facility] Percent Iron Saturation 45 15 - 50 % [facility] Unsaturated Iron Binding 194 ug/dL [facility] Blood Venous blood specimen / Unknown 10/11/2024 3:17 PM EDT 10/11/2024 4:05 PM EDT us Yung Lindo MD LAB BLOOD ORDERABLES Final Resul t Performing Organization Address [facility] Phone Number [facility] [address] [place] [phone] * T4, Free (10/11/2024 3:17 PM EDT) Free T4 (Free Thyroxine) 0.96 0.71 - 1.85 ng/dL [facility] 10/11/2024 3:17 PM EDT 10/11/2024 4:05 PM EDT us Yung Lindo MD LAB BLOOD ORDERABLES Final Resul t Performing Organization Address [facility] Co de Phone Number [facility] [address] [place] [phone] * (ABNORMAL) Hemoglobin A1c (10/11/2024 3:17 PM EDT) Hemoglobin A1c 6.4(H) <6.0 % [facility] Comment:Hemoglobin A1C Refer ence Range Adults: 4.8 - 6.0 % Non diabetic: < 6.0 % Goal: < 7.0 %Additional Action Suggested: > 8.0 %Note: Hemoglobin A1c results are invalid for patients with abnormal amounts of HbF. Blood transfusions may impact the HbA1c concentration in the patient sample. Estimated Average Glucose 137 mg/dL [facility] Comment:eAG = Estimated ave rage glucose which is %A1C expressed asaverage glucose, using the formula of the H4Z-[id number] Glucose study (ADAG), Diabetes Care, Vol.31,#8,2007 Blood Venous blood specimen / Unknown 10/11/2024 3:17 PM EDT 10/11/2024 4:05 PM EDT us Yung Lindo MD LAB BLOOD ORDERABLES Final Resul t Performing Organization Address City/[facility] Co de Phone Number [facility] [address] [place] [phone] * Ferritin (10/11/2024 3:17 PM EDT) Pathologist [facility] Ferritin 128 10 - 250 ng/mL [facility] Blood Venous blood specimen / Unknown 10/11/2024 3:17 PM EDT 10/11/2024 4:05 PM EDT us Yung Lindo MD LAB BLOOD ORDERABLES Final Resul t Performing Organization Address [facility] Co de Phone Number [facility] [address] [place] [address] [phone] * (ABNORMAL) Lipid Panel, Standard (10/11/2024 3:17 PM EDT) Triglycerides 146 <150 mg/dL [facility] Comment:Desirable Triglyceri de: less than 150 mg/dLBorderline High Triglyceride 150-199 mg/dLHigh Triglyceride: 200-499 mg/dLVery High Triglyceride: greater than or equal to 5OO mg/dL Cholesterol 215(H) <200 mg/dL [facility] Comment:Desirable Cholestero l: less than 200 mg/dLBorderline High Cholesterol: 200-239 mg/dLHigh Cholesterol: greater than 239 mg/dL LDL Cholesterol Calculated 139(H) <100 mg/dL [facility] Comment:Desirable LDL: less than 100 mg/dLNear Optimal/Above Optimal LDL: 110- 129 mg/dLBorderline High LDL: 130-159 mg/dLHigh LDL: 160-189 mg/dLVery High LDL: greater than or equal to 190 mg/dL HDL Cholesterol 47 >40 mg/dL [facility] Comment:Desirable HDL: great er than 40 mg/dL Note: This HDL assay may give artificially low results in patients with liver disease. Blood Venous blood specimen / Unknown 10/11/2024 3:17 PM EDT 10/11/2024 4:05 PM EDT us Yung Name LAB BLOOD ORDERABLES Final Resul t [facility] [address] [place] [phone] * (ABNORMAL) Comprehensive Metabolic Panel (10/11/2024 3:17 PM EDT) Sodium 141 135 - 145 mmol/L [facility] Potassium 4.0 3.3 - 5.1 mmol/L [facility] Chloride 104 96 - 108 mmol/L [facility] Carbon Dioxide 25 22 - 29 mmol/L [facility] Anion Gap 16 12 - 20 [facility] Urea Nitrogen (BUN) 11 9 - 16 mg/dL [facility] Creatinine, Serum 1.07 0.5 - 1.4 mg/dL [facility] Estimated Glomerular Filt Rate 53 [facility] Comment:Chronic Kidney Disea se: Estimated GFR < 60 mL/min/1.97d1Mdokya Kidney Disease: Estimated GFR < 15 mL/min/1.73m2 Glucose 136(H) 60 - 115 mg/dL [facility] Calcium 9.4 8.4 - 10.2 mg/dL [facility] Bilirubin, Total 0.8 0.0 - 1.0 mg/dL [facility] Aspartate Amino Transferase 74(H) 5 - 31 U/L [facility] Alanine Aminotransferase 60(H) 0 - 31 U/L [facility] Total Protein 7.9 6.5 - 8.0 g/dL [facility] Albumin Level 4.0 3.5 - 5.0 g/dL [facility] Alkaline Phosphatase 126(H) 39 - 117 U/L [facility] Blood Venous blood specimen / Unknown 10/11/2024 3:17 PM EDT 10/11/2024 4:05 PM EDT us Yung Lindo MD LAB BLOOD ORDERABLES Final Resul t Performing Organization Address City/State/[facility] Co de Phone Number [facility] [address] [place] [phone] from Last 3 Months Insurance [facility] C3 [facility] MEDICAID STAND ADULT Advance Directives Documents on File Type Date Recorded Patient Learning Strategist Expl anation Advance Directives and Living Will 09/03/2024 2:00 PM Health Care Proxy Care Teams Compensation Intern Relationship Specialty Start Date End Date Name, MD Yung [address] [place] [phone] PCP - General Internal Medicine 10/23/23
--- OUTSIDE RECORDS SUMMARY | 2024-12-20 12:55 | XMS_ITS | Encounter Summary ---
Author Organization [employer] Address [address] [facility] 7t [place] [address] Care Team Providers Care Jewelry Mechanic Name Role Phone Name, Yung MENDEZ Primary Care Provider [phone] Encounter Details Date Type Department Care Team (Latest Contact Info) Description 12/20/2024 Travel Social History Tobacco Use Types Packs/Day Years Used Date Smoking Tobacco: Never Smokeless Tobacco: Never Alcohol Use Standard Drinks/Week Comments Never 0 (1 standard drink = 0.6 oz pur e alcohol) Depression Answer Date Recorded Patient Health Questionnaire-9 Score 15 09/23/2024 Patient Health Questionnaire-9 Score 15 09/23/2024 Last PHQ-9: Questionnaire Data Not on file 0 09/23/2024 Housing Stability Answer Date Recorded What is your housing situation today? I have alex sing 12/20/[address] you li [...] Description 01/09/2025 2:00 PM EDT Office Visit [facility] OPTOMETRY [address] [place] [address] Sawyer, Deanna, OD 230 [place] [address] 03/18/2025 11:30 AM EST Office Visit [facility] MEDICINE 230 [place] [address] NameYung MD 230 [place] [address] documented as of this encounter Visit Diagnoses Not on filedocumented in this encounter Additional Health Concerns Assessment Noted Time PHQ-9 Depression Total Score: 15 025 11:44 AM EDT documented as of this encounter Care Teams Jewelry Mechanic Relationship Specialty Start Date End Date NameYung MD 230 [place] [address] PCP - General Internal Medicine 10/23/23 documented as of this encounter
--- OUTSIDE RECORDS SUMMARY | 2024-12-20 12:55 | XMS_ITS | Encounter Summary ---
Author Organization [employer] Address [address] [place] [address] 7t [place] [address] Care Team Providers Care Ux Design Manager Name Role Phone Tasha Benson MD Primary Care Provider + Yung Lindo MD Primary Care Provider [phone] Reason for Visit * Reason Comments Med Refill Encounter Details Date Type Department Care Team (Late st Contact Info) Description 10/28/[address] [facility] MEDICINE [address] [place], [place] [phone] Anabell Cloud MD 230 [place], [place] [phone] Social History Tobacco Use Types Packs/Day Years [...] Description 01/09/2025 2:00 PM EDT Office Visit [facility] OPTOMETRY [address] [place], [place] [phone] Deanna Jacques, OD 230 [place] [address] 03/18/2025 11:30 AM EST Office Visit [facility] MEDICINE [address] [place] [address] Name, MD Yung 230 [place] [address] documented as of this encounter Visit Diagnoses Not on filedocumented in this encounter Care Teams Ux Design Manager Relationship Specialty Start Date End Date Tasha Benson MD [address] [place] [address] PCP - General Internal Medicine 08/10/23 10/22/23 Name, MD Yung [address] [place] [address] PCP - General Internal Medicine 10/23/23 documented as of this encounter
--- OUTSIDE RECORDS SUMMARY | 2024-12-20 12:55 | XMS_ITS | Encounter Summary ---
Author Organization [employer] Address [address] [facility] 7t [place] [address] Care Team Providers Care Assistant Mechanic Name Role Phone Tasha Benson MD Primary Care Provider + Yung Lindo MD Primary Care Provider [phone] Encounter Details Date Type Department Care Team (Latest Contact Info) Description 03/29/2019 Abstract [facility] CONVERSIONS Dental, Provider, DDS Social History Tobacco Use Types Packs/Day Years [...] Description 01/09/2025 2:00 PM EDT Office Visit [facility] OPTOMETRY [address] [place] [address] Sawyer, Deanna, OD 230 [place] [address] 03/18/2025 11:30 AM EST Office Visit [facility] MEDICINE 230 [place] [address] Yung Lindo MD 230 [place], [place] [phone] documented as of this encounter Visit Diagnoses Not on filedocumented in this encounter Care Teams Assistant Mechanic Relationship Specialty Start Date End Date Tasha Benson MD 230 [place] [address] PCP - General Internal Medicine 08/10/23 10/22/23 [place], MD Yung 230 [place] [address] PCP - General Internal Medicine 10/23/23 documented as of this encounter
--- OUTSIDE RECORDS SUMMARY | 2024-12-20 12:55 | XMS_ITS | Encounter Summary ---
Author Organization [employer] Address [address] [facility] 7t [place] [address] Care Team Providers Care Fsr Name Role Phone Tasha Benson MD Primary Care Provider + Yung Lindo MD Primary Care Provider [phone] Encounter Details Date Type Department Care Team (Latest Contact Info) Description 07/23/2020 Abstract [facility] CONVERSIONS Dental, Provider, DDS Social History Tobacco [...] Description 01/09/2025 2:00 PM EDT Office Visit [facility] OPTOMETRY [address] [place] [address] Sawyer, Deanna, OD 230 [place] [address] 03/18/2025 11:30 AM EST Office Visit [facility] MEDICINE 230 [place] [address] Yung Lindo MD 230 [place], [place] [phone] documented as of this encounter Visit Diagnoses Not on filedocumented in this encounter Care Teams Fsr Relationship Specialty Start Date End Date Tasha Benson MD 230 [place] [address] PCP - General Internal Medicine 08/10/23 10/22/23 Name, MD Yung 230 [place] [address] PCP - General Internal Medicine 10/23/23 documented as of this encounter
--- OUTSIDE RECORDS SUMMARY | 2024-12-20 12:55 | XMS_ITS | Encounter Summary ---
Author Organization [employer] Address [address] [facility] [address] [facility] [address] 7[address] [place] [address] Care Team Providers Care Floor Steward/Stewardess Name Role Phone Name, Yung MENDEZ Primary Care Provider [phone] Reason for Visit * Reason Onset Date Comments Nurse Triage 11/04/2024 Encounter Details Date Type Department Care Team ([facility] st Contact Info) Description 11/04/2024 Telephone [facility] MEDICINE 230 [place], [place] [phone] Name, MD Yung 230 [place] [address] Nurse Triage Social History Tobacco Use Types Packs/Day Years [...] your housing situation today? I have alex kisha 10/12/[address] you li ve. Do you have problems with any of the following? None of the above 10/12/2023 Food Insecurity Answer Date Recorded Within the past 12 months, y ou worried that your food would run out before you got money to buy more: Never True 10/12/2023 Within the past 12 months,th e food you bought just didn't last and you didn't have enough money to get more: Never True Transportation Answer Date Recorded In the past 12 months, has l ack of transportation kept you from medical appts, meetings, work or from getting things needed for daily living? No 10/12/2023 Utilities Answer Date Recorded In the past 12 months, has t he electric, gas, oil or water company threatened to shut off services in your home? No 10/12/2023 Depression Answer Date Recorded Patient Health Questionnaire-2 Score 6 09/23/2024 Internet Access Answer Date Recorded Internet Access Q1 No 12/25/2023 Internet Access Q2 Not on file 12/25/2023 Comments Unknown Sex and Gender Information Value Date Recorded Sex Assigned at Female 02/21/2022 10:15 AM EDT Legal Sex Female 10:15 AM EDT Gender Identity Female 02/21/2022 10:15 AM EDT Sexual Orientation Straight 02/21/2022 10 :15 AM EDT documented as of this encounter Miscellaneous Notes * Telephone Encounter - Shannon Escobar RN - 11/04/2024 10:00 AM EDT Triage call Pt reports didn't call for triage just called for cancellation of apt with [facility] . Apt is canceled . Pt reports headache started last night. Dull pressure in the forehead area and Pt feels warm . Pt is advised to increase liquids 6-8 glasses daily. Apply ice to forehead and lay down torest for 20 min and see if that helps. Pt can take tylenol/ibuprofen as needed. Pt agrees with homecare advised. Pt is advised if needed WIC is open till 8pm today and Pt can go to be seen by provider . Pt agrees with disposition. Pt will apply home care suggested and will come to [facility] if needed. Protocol Used: Headache (Adult) Protocol-Based Disposition: Home Care Positive Triage Question: * Mild to moderate headache * All higher-acuity triage questions were negative Care Advice Discussed: * Reassurance and Education - Muscle Tension Headache * Pain Medicines * Rest for Headache * Cold Pack for Headache * Reasons To Call Back - Severe headache lasts over 2 hours after pain medicine - Headache lasts over 24 hours despite using a pain medicine - You become worse * Telephone Encounter - Yung Lenz - 11/04/2024 8:59 AM EDT Symptom: Headache Outcome: Schedule a same-day appointment or talk to a nurse or provider today Reason: Caller denied all higher acuity questions The caller accepted this outcome. [phone] documented in this encounter Plan of Treatment Upcoming Encounters Date Type Department Care Team (Late st Contact Info) Description 01/09/2025 2:00 PM EDT Office Visit [facility] OPTOMETRY [address] [place] [address] Sawyer, Deanna, OD 230 [place] [address] 03/18/2025 11:30 AM EST Office Visit [facility] MEDICINE 230 [place] [address] Name, MD Yung 230 [place] [address] documented as of this encounter Visit Diagnoses Not on filedocumented in this encounter Additional Health Concerns Assessment Noted Time PHQ-9 Depression Total Score: 15 025 11:44 AM EDT documented as of this encounter Care Teams Floor Steward/Stewardess Relationship Specialty Start Date End Date Yung Lindo MD 230 [place] [address] PCP - General Internal Medicine 10/23/23 documented as of this encounter
--- OUTSIDE RECORDS SUMMARY | 2024-12-20 12:55 | XMS_ITS | Encounter Summary ---
Author Organization [employer] Address [address] [facility] [address] 7[address] [place] [address] Care Team Providers Care Networks Computer Consultant Name Role Phone Name, Yung MENDEZ Primary Care Provider [phone] Reason for Visit * Reason Onset Date Comments Nurse Triage 05/08/2024 Encounter Details Date Type Department Care Team ([facility] st Contact Info) Description 05/08/2024 Telephone [facility] MEDICINE 230 [place], [place] [phone] Name, MD Yung 230 [place] [address] Nurse Triage Social History Tobacco Use Types Packs/Day Years Used Date Smoking Tobacco: Never Smokeless Tobacco: Never Alcohol Use Standard Drinks/Week Comments Never 0 (1 standard drink = 0.6 oz pur e alcohol) Depression Answer Date Recorded Patient Health Questionnaire-9 Score 15 11/01/2023 Patient Health Questionnaire-9 Score 15 11/01/2023 Last PHQ-9: Questionnaire Data Not on file 0 11/01/2023 Housing Stability Answer Date Recorded What is your housing situation today? I have alexyaron beard 10/12/[address] you li [...] Date Recorded Patient Health Questionnaire-2 Score 6 11/01/2023 Internet Access Answer Date Recorded Internet Access [...] Telephone Encounter - Shannon Escobar RN - 05/08/2024 12:21 PM EST Triage call Pt reports urinary frequency and incontinence of urine for last several days. Pt deniesflank pain, odor or burning with urination. Due to bad connection on phone, no further questions are asked and Pt is advised to come to [facility] for provider to check for UTI. Pt agrees with disposition. Insurance is verified as active. Protocol Used: Urinary Symptoms (Adult) Protocol-Based Disposition: See in Office or Video Visit Today Video visit not offered Positive Triage Questions: * Urinating more frequently than usual (i.e., frequency) OR new-onset of the feeling of an urgent need to urinate (i.e., urgency) * Can't control passage of urine (i.e., urinary incontinence) and new-onset (< 2 weeks) or getting worse * All higher-acuity triage questions were negative Care Advice Discussed: * Reassurance and Education - Urinary Incontinence * Reasons To Call Back - Fever occurs - Pain or burning with urination - You become worse * Telephone Encounter - Laura Holland - 05/08/2024 11:59 AM EST Symptom: Urine Symptoms Outcome: Schedule a same-day appointment or talk to a nurse or provider today Reason: Caller denied all higher acuity questions T having incontinence for 5 months. The caller accepted this outcome. documented in this encounter Plan of Treatment Upcoming Encounters Date Type Department Care Team (Late st Contact Info) Description 01/09/2025 2:00 PM EDT Office Visit [facility] OPTOMETRY [address] [place] [address] Deanna Jacques, OD 230 [place] [address] 03/18/2025 11:30 AM EST Office Visit [facility] MEDICINE [address] [place] [address] NameYung MD 230 [place] [address] documented as of this encounter Visit Diagnoses Not on filedocumented in this encounter Additional Health Concerns Assessment Noted Time PHQ-9 Depression Total Score: 15 024 10:18 AM EDT documented as of this encounter Care Teams Networks Computer Consultant Relationship Specialty Start Date End Date Name, MD Yung 230 [place], [place] [phone] PCP - General Internal Medicine 10/23/23 documented as of this encounter
--- OUTSIDE RECORDS SUMMARY | 2024-12-20 12:55 | XMS_ITS | Encounter Summary ---
Author Organization [facility] [facility] [employer] Address [address] [place] [address] 7t [place] [address] Care Team Providers Care Granite Polisher Apprentice Name Role Phone Yung Lindo MD Primary Care Provider [phone] Reason for Referral * Imaging (Routine) - Pending Review Specialty Diagnoses / Procedures Referred By Contac t Referred To Contact Radiology Diagnoses Elevated liver enzymes Procedures US Abdomen Comp w elastography Yung Lindo MD 230 [place] [address] Phone: tel: fax: [address] Phone: tel: fax: Referral ID Status Reason Start Date Expiration Date V isits Requested Visits Authorized [id number] Pending Review 10/16/2024 10/16/2025 1 1 Encounter Details Date Type Department Care Team (Latest Contact Info) Description 10/16/2024 Results Follow-Up [facility] MEDICINE 230 [place], [place] [phone] Yung Lindo MD 230 [place], [place] [phone] TSH W/Reflex to FT4, Comprehensive Metabolic Panel, Vitamin D, 25-Hydroxy, Total, Immunoassay, Additional followed-up results: 3 Social History Tobacco Use Types Packs/Day Years [...] housing situation today? I have alex beard 10/12/[address] you [...] encounter Miscellaneous Notes * Telephone Encounter - Nikolas Hickey - 10/16/2024 1:34 PM EDT Pt returning call documented in this encounter Plan of Treatment Upcoming Encounters Date Type Department Care Team (Late st Contact Info) Description 01/09/2025 2:00 PM EDT Office Visit [facility] OPTOMETRY [address] [place] [address] Deanna Jacques, OD 230 [place], [place] [phone] 03/18/2025 11:30 AM EST Office Visit [facility] MEDICINE [address] [place], [place] [phone] Name, MD Yung [address] [place] [address] Scheduled Orders Name Type Priority Associated Diagnoses Orde r Schedule Hepatitis C Antibody with Reflex to HCV, RNA, Quantitative, Real-Time PCR Lab Routine Elevated liver enzymes Expected: 10/16/2024, Expires: 10/16/2025 Hepatitis B surface antigen, EIA Lab Routine Elevated liver enzymes Expected: 10/16/2024 (Approximate), Expires: 10/16/2025 Hepatitis B Surface Antibody, Qualitative Lab Routine Elevated liver enzymes Expected: 10/16/2024 (Approximate), Expires: 10/16/2025 Hepatitis A Antibody, Total Lab Routine Elevated liver enzymes Expected: 10/16/2024 (Approximate), Expires: 10/16/2025 US Abdomen Comp w elastography Imaging Routine Elevated liver enzymes Expected: 10/16/2024, Expires: 10/16/2025 documented as of this encounter Visit Diagnoses Diagnosis Prediabetes- Primary Other abnormal glucose Elevated liver enzymes Other nonspecific abnormal serum enzyme levels Low vitamin D level documented in this encounter Additional Health Concerns Assessment Noted Time PHQ-9 Depression Total Score: 15 025 11:44 AM EDT documented as of this encounter Care Teams Granite Polisher Apprentice Relationship Specialty Start Date End Date Name, MD Yung [address] [place] [address] PCP - General Internal Medicine 10/23/23 documented as of this encounter
--- OUTSIDE RECORDS SUMMARY | 2024-12-20 12:55 | XMS_ITS | Encounter Summary ---
Author Organization [employer] Address [address] [place] [address] 7t [place] [address] Care Team Providers Care Furnace Tapper Name Role Phone Tasha Benson MD Primary Care Provider + Yung Lindo MD Primary Care Provider [phone] Reason for Visit * Reason Comments Med Refill Encounter Details Date Type Department Care Team (Late st Contact Info) Description 05/10/2023 Refill [facility] MEDICINE [address] [place], [place] [phone] Anabell Cloud MD [address] [place], [place] [phone] Social History Tobacco Use Types Packs/Day Years [...] Description 01/09/2025 2:00 PM EDT Office Visit [facility] OPTOMETRY [address] [place], [place] [phone] Deanna Jacques, OD 230 [place] [address] 03/18/2025 11:30 AM EST Office Visit [facility] MEDICINE [address] [place] [address] Name, MD Yung [address] [place] [address] documented as of this encounter Visit Diagnoses Not on filedocumented in this encounter Care Teams Furnace Tapper Relationship Specialty Start Date End Date Tasha Benson MD [address] [place] [address] PCP - General Internal Medicine 08/10/23 10/22/23 Name, MD Yung [address] [place] [address] PCP - General Internal Medicine 10/23/23 documented as of this encounter
--- OUTSIDE RECORDS SUMMARY | 2024-12-20 12:55 | XMS_ITS | Encounter Summary ---
Author Organization [employer] Address [address] [place] [address] Care Team Providers Care Automotive Parts Interpreter Name Role Phone Name, Yung MENDEZ Primary Care Provider [phone] Reason for Visit * Reason Onset Date Comments CHARTPREP 12/19/2024 Encounter Details Date Type Department Care Team ([facility] st Contact Info) Description 12/19/2024 Telephone [facility] MEDICINE [address] [place] [address] Manjit Castillo MA CHARTPREP Social History Tobacco Use Types Packs/Day Years [...] encounter Miscellaneous Notes * Telephone Encounter - Manjit Castillo MA - 12/19/2024 2:09 PM EDT Chart Prep Labs: recent labs not done 10/16/24 Images: not done Referrals: radiology 01/07/25 10:30 am [facility] Vaccines due: Covid, Flu, and Zoster Screenings: colonoscopy, mammogram, and pap smear Overdue care gaps: SDOH and Oral health screening documented in this encounter Plan of Treatment Upcoming Encounters Date Type Department Care Team (Late st Contact Info) Description 01/09/2025 2:00 PM EDT Office Visit [facility] OPTOMETRY [address] [place] [address] Deanna Jacques, OD 230 [place] [address] 03/18/2025 11:30 AM EST Office Visit [facility] MEDICINE [address] [place] [address] Name, MD Yung [address] [place] [address] documented as of this encounter Visit Diagnoses Not on filedocumented in this encounter Additional Health Concerns Assessment Noted Time PHQ-9 Depression Total Score: 15 025 11:44 AM EDT documented as of this encounter Care Teams Automotive Parts Interpreter Relationship Specialty Start Date End Date Name, MD Yung 230 [place] [address] PCP - General Internal Medicine 10/23/23 documented as of this encounter
--- OUTSIDE RECORDS SUMMARY | 2024-12-20 12:55 | XMS_ITS | Encounter Summary ---
Author Organization [employer] Address [address] [facility] 7t [place] [address] Care Team Providers Care Oven Builder Name Role Phone Tasha Benson MD Primary Care Provider + Yung Lindo MD Primary Care Provider [phone] Encounter Details Date Type Department Care Team (Late st Contact Info) Description 02/16/2023 Orders Only [facility] MED [facility] PEDS [address] [place], [place] [phone] Marita Brandt LPN Social History Tobacco Use Types Packs/Day Years [...] Description 01/09/2025 2:00 PM EDT Office Visit [facility] OPTOMETRY [address] [place] [address] Deanna Jacques, OD [address] [place] [address] 03/18/2025 11:30 AM EST Office Visit [facility] MEDICINE [address] [place] [address] Belgica, MD Yung [address] [place] [address] documented as of this encounter Visit Diagnoses Not on filedocumented in this encounter Care Teams Oven Builder Relationship Specialty Start Date End Date Tasha Benson MD [address] [place] [address] PCP - General Internal Medicine 08/10/23 10/22/23 Name, MD Yung [address] [place] [address] PCP - General Internal Medicine 10/23/23 documented as of this encounter
== END 2024-12-20 12:14 | disposition home or self-care (01) ==
LOC: HO.HHCX 12:13
PROVIDERS: PCP Internal Medicine Geriatric Medicine; Visit Provider Internal Medicine Geriatric Medicine
DX: M25.561 Pain in right knee (principal); M25.562 Pain in left knee; G89.29 Other chronic pain
CPT/HCPCS: 73562

== ENCOUNTER → 2024-12-20 12:29 | Outpatient (BNV) | payer MEDICAID, SELFPAY | PROVIDERS: PCP Internal Medicine Geriatric Medicine; Visit Provider Radiology Diagnostic Radiology | DX: M17.0 Bilateral primary osteoarthritis of knee (principal) | CPT/HCPCS: 73562 ==

== ENCOUNTER 2025-03-07 12:52 | Outpatient (REF) | payer MEDICAID, SELFPAY ==
--- NOTE | ~2025-03-07 | XR_ITS ---
EXAMINATION: Bilateral hands 3 views each. CLINICAL INDICATION: Bilateral hand pain. COMPARISON: None. TECHNIQUE: 3 views each hand. FINDINGS: RIGHT HAND: There is loss of PIP and DIP joint spaces both digits with mild periarticular spurring DIP joint second through fifth digits and PIP joint first through fifth digits. No bony erosive changes. No loose bodies. No extra-articular osteoporosis. The soft tissues are normal. LEFT HAND: There is loss of PIP and DIP joint space with mild periarticular spurring. No acute fracture or dislocation. No juxta-articular osteoporosis. There is a small loose body adjacent to the trapezial bone likely old avulsion injury. The soft tissues are normal. XR/XR Hand Bilat min 3v IMPRESSION: Degenerative osteoarthritic changes bilateral hand. No visible acute fracture, dislocation or subluxation seen. Electronically signed by: Luis A Gooden MD 03/07/2025 03:20 PM ANIBAL
--- OUTSIDE RECORDS SUMMARY | 2025-03-07 18:48 | XMS_ITS | Encounter Summary ---
Author Organization [employer] Address [address] 7t [place] [address] Care Team Providers Care Sheep Farm Manager Name Role Phone Tasha Benson MD Primary Care Provider + Yung Lindo MD Primary Care Provider [phone] Encounter Details Date Type Department Care Team (Latest Contact Info) Description 07/23/2020 Abstract [facility] CONVERSIONS Dental, Provider, DDS Social History Tobacco [...] Care Team (Late st Contact Info) Description 03/18/2025 11:30 AM EST Office Visit [facility] MEDICINE [address] [place] [address] NameYung MD [address] [place] [address] documented as of this encounter Visit Diagnoses Not on filedocumented in this encounter Care Teams Sheep Farm Manager Relationship Specialty Start Date End Date Tasha Benson MD [address] [place] [address] PCP - General Internal Medicine 08/10/23 10/22/23 Name, MD Yung [address] [place] [address] PCP - General Internal Medicine 10/23/23 documented as of this encounter
--- OUTSIDE RECORDS SUMMARY | 2025-03-07 18:48 | XMS_ITS | Encounter Summary ---
Author Organization [employer] Address [address] [place] [address] 7 [place] [address] Care Team Providers Care Service Desk Technician Name Role Phone Tasha Benson MD Primary Care Provider + Yung Lindo MD Primary Care Provider [phone] Reason for Visit * Reason Comments Med Refill Encounter Details Date Type Department Care Team (Late st Contact Info) Description 02/16/[address] [facility] MED [facility] PEDS [address] [place], [place] [phone] Marita Kowalski DO [address] [place], [place] [phone] Hyperlipidemia, unspecified hyperlipidemia type Social History Tobacco [...] Description 03/18/2025 11:30 AM EST Office Visit [facility] MEDICINE [address] [place], [place] [phone] Yung Lindo MD [address] [place], [place] [phone] documented as of this encounter Visit Diagnoses Diagnosis Hyperlipidemia, unspecified hyperlipidemia type documented in this encounter Care Teams Service Desk Technician Relationship Specialty Start Date End Date Tasha Benson MD [address] [place] [address] PCP - General Internal Medicine 08/10/23 10/22/23 [place], MD Yung [address] [place] [address] PCP - General Internal Medicine 10/23/23 documented as of this encounter
--- OUTSIDE RECORDS SUMMARY | 2025-03-07 18:48 | XMS_ITS | Encounter Summary ---
Author Organization [employer] Address [address] 7[address] [place] [address] Care Team Providers Care Terra Cotta Setter Name Role Phone Name, Yung MENDEZ Primary Care Provider [phone] Reason for Visit * Reason Onset Date Comments TelephoneCall 03/03/2025 Encounter Details Date Type Department Care Team ([facility] st Contact Info) Description 03/03/2025 Telephone [facility] MEDICINE [address] [place] [address] Name, MD Yung [address] [place] [address] TelephoneCall Social History Tobacco Use Types Packs/Day Years [...] encounter Miscellaneous Notes * Telephone Encounter - Eleanor Ahuja - 03/03/2025 9:14 AM EST Outgoing call to patient. Patient was informed todays appointment 03/03/25 with Lakshmi the Nutrtionist has been canceled. Patient will be rescheduled once the field underwriter is able to communicate with Lakshmi. documented in this encounter Plan of Treatment Upcoming Encounters Date Type Department Care Team (Late st Contact Info) Description 03/18/2025 11:30 AM EST Office Visit [facility] MEDICINE [address] [place] [address] Name, MD Yung [address] [place] [address] documented as of this encounter Visit Diagnoses Not on filedocumented in this encounter Additional Health Concerns Assessment Noted Time PHQ-9 Depression Total Score: 15 025 11:44 AM EDT documented as of this encounter Care Teams Terra Cotta Setter Relationship Specialty Start Date End Date Name, MD Yung [address] [place] [address] PCP - General Internal Medicine 10/23/23 documented as of this encounter
--- OUTSIDE RECORDS SUMMARY | 2025-03-07 18:48 | XMS_ITS | Encounter Summary ---
Author Organization [employer] [facility] Address [address] [place] [address] 7t [place] [address] Care Team Providers Care Infant Lead Teacher Name Role Phone Tasha Benson MD Primary Care Provider + Yung Lindo MD Primary Care Provider [phone] Reason for Visit * Reason Comments Med Refill Encounter Details Date Type Department Care Team (Late st Contact Info) Description 10/28/2022 Refill [facility] MEDICINE [address] [place] [address] [phone] Anabell Cloud MD [address] [place] [address] [phone] Social History Tobacco Use Types Packs/Day Years [...] Description 03/18/2025 11:30 AM EST Office Visit [facility] MEDICINE [address] [place] [address] [phone] Yung Lindo MD [address] [place] [address] [phone] documented as of this encounter Visit Diagnoses Not on filedocumented in this encounter Care Teams Infant Lead Teacher Relationship Specialty Start Date End Date Tasha Benson MD [address] [place] [address] PCP - General Internal Medicine 08/10/23 10/22/23 Name, MD Yung [address] [place] [address] PCP - General Internal Medicine 10/23/23 documented as of this encounter
--- OUTSIDE RECORDS SUMMARY | 2025-03-07 18:49 | XMS_ITS | Encounter Summary ---
Author Organization [employer] Address [address] [facility] 7t [place] [address] Care Team Providers Care Supervisor Filling And Packing Name Role Phone Tasha Benson MD Primary Care Provider + Yung Lindo MD Primary Care Provider [phone] Encounter Details Date Type Department Care Team (Latest Contact Info) Description 03/29/[address] [facility] CONVERSIONS Dental, Provider, DDS Social History [...] Description 03/18/2025 11:30 AM EST Office Visit [facility] MEDICINE [address] [place] [address] NameYung MD [address] [place] [address] documented as of this encounter Visit Diagnoses Not on filedocumented in this encounter Care Teams Supervisor Filling And Packing Relationship Specialty Start Date End Date Tasha Benson MD [address] [place] [address] PCP - General Internal Medicine 08/10/23 10/22/23 Name, MD Yung [address] [place] [address] PCP - General Internal Medicine 10/23/23 documented as of this encounter
--- OUTSIDE RECORDS SUMMARY | 2025-03-07 18:49 | XMS_ITS | Encounter Summary ---
Author Organization [employer] [facility] Address [address] [place] [address] 7t [place] [address] Care Team Providers Care Corn Husker Name Role Phone Tasha Benson MD Primary Care Provider + Yung Lindo MD Primary Care Provider [phone] Reason for Visit * Reason Comments Med Refill Encounter Details Date Type Department Care Team (Late st Contact Info) Description 05/10/2023 Refill [facility] MEDICINE [address] [place] [address] [phone] Anabell Cloud MD [address] [place] [address] [phone] Social History Tobacco Use Types Packs/Day Years [...] Description 03/18/2025 11:30 AM EST Office Visit [facility] MEDICINE [address] [place] [address] [phone] Yung Lindo MD [address] [place] [address] [phone] documented as of this encounter Visit Diagnoses Not on filedocumented in this encounter Care Teams Corn Husker Relationship Specialty Start Date End Date aTsha Benson MD [address] [place] [address] PCP - General Internal Medicine 08/10/23 10/22/23 Name, MD Yung [address] [place] [address] PCP - General Internal Medicine 10/23/23 documented as of this encounter
--- OUTSIDE RECORDS SUMMARY | 2025-03-07 18:49 | XMS_ITS | Encounter Summary ---
Author Organization [employer] Address [address] [facility] 7t [place] [address] Care Team Providers Care Sound Installation Worker Name Role Phone Tasha Benson MD Primary Care Provider + NameYung MD Primary Care Provider [phone] Encounter Details Date Type Department Care Team (Late st Contact Info) Description 02/16/2023 Orders Only [facility] MED [facility] PEDS [address] [place], [place] [phone] Marita Brandt LPN Social History Tobacco Use [...] Description 03/18/2025 11:30 AM EST Office Visit [facility] MEDICINE [address] [place] [address] Name, MD Yung [address] [place] [address] documented as of this encounter Visit Diagnoses Not on filedocumented in this encounter Care Teams Sound Installation Worker Relationship Specialty Start Date End Date Tasha Benson MD [address] [place] [address] [phone] PCP - General Internal Medicine 08/10/23 10/22/23 Name, MD Yung [address] [place] [address] PCP - General Internal Medicine 10/23/23 documented as of this encounter
--- OUTSIDE RECORDS SUMMARY | 2025-03-07 18:49 | XMS_ITS | Encounter Summary ---
Author Organization [employer] Address [address] [facility] [address] [facility] [address] [facility] [address] [place] [address] Care Team Providers Care Telemarketing Supervisor Name Role Phone Name, Yung MENDEZ Primary Care Provider [phone] Reason for Visit * Reason Onset Date Comments Nurse Triage 05/08/2024 Encounter Details Date Type Department Care Team ([facility] st Contact Info) Description 05/08/2024 Telephone [facility] MEDICINE [address] [place], [place] [phone] Name, MD Yung [address] [place] [address] Nurse Triage Social History Tobacco Use Types [...] and Pt is advised to come to [facility] for provider to check for UTI. Pt [...] Description 03/18/2025 11:30 AM EST Office Visit [facility] MEDICINE [address] [place] [phone] Name, MD Yung [address] [place] [address] documented as of this encounter Visit Diagnoses Not on filedocumented in this encounter Additional Health Concerns Assessment Noted Time PHQ-9 Depression Total Score: 15 024 10:18 AM EDT documented as of this encounter Care Teams Telemarketing Supervisor Relationship Specialty Start Date End Date Name, MD Yung [address] [place] [address] PCP - General Internal Medicine 10/23/23 documented as of this encounter
--- OUTSIDE RECORDS SUMMARY | 2025-03-07 18:49 | XMS_ITS | Encounter Summary ---
Author Organization [employer] Address [address] 7[address] [place] [address] Care Team Providers Care Daycare Manager Name Role Phone Name, Yung MENDEZ Primary Care Provider [phone] Reason for Visit * Reason Onset Date Comments Nurse Triage 11/04/2024 Encounter Details Date Type Department Care Team ([facility] st Contact Info) Description 11/04/2024 Telephone [facility] MEDICINE [address] [place], [place] [phone] Name, MD Yung [address] [place] [address] Nurse Triage Social History Tobacco Use Types [...] housing situation today? I have alex sing 10/12/[address] you li [...] home care suggested and will come to [facility] if needed. Protocol Used: Headache (Adult) Protocol-Based [...] acuity questions The caller accepted this outcome. [phone] documented in this encounter Plan of Treatment Upcoming Encounters Date Type Department Care Team (Late st Contact Info) Description 03/18/2025 11:30 AM EST Office Visit [facility] MEDICINE [address] [place] [phone] Name, MD Yung [address] [place] [address] documented as of this encounter Visit Diagnoses Not on filedocumented in this encounter Additional Health Concerns Assessment Noted Time PHQ-9 Depression Total Score: 15 09/23/ 025 11:44 AM EDT documented as of this encounter Care Teams Daycare Manager Relationship Specialty Start Date End Date Name, MD Yung [address] [place] [address] PCP - General Internal Medicine 10/23/23 documented as of this encounter
--- OUTSIDE RECORDS SUMMARY | 2025-03-07 18:49 | XMS_ITS | Clinical Summary ---
Author Organization [employer] Address [address] [facility] [address] [place] [address] Care Team Providers Care Supervisor Byproducts Name Role Phone Name, Yung MENDEZ Primary Care Provider [phone] Allergies No known active allergies Medications * This document contains information received from the source organization and may not represent a complete record from that organization. ferrous sulfate (FeroSul) 325 (65 Fe) MG tablet TAKE 1 TABLET BY MOUTH EVERY DAY AT NOON 90 tablet 5 Active simvastatin (Zocor) 40 MG tabletIndications:H yperlipidemia, unspecified hyperlipidemia type TAKE 1 TABLET BY [...] 3 5 Active FLUoxetine (PROzac) 20 MG capsuleIndications: Mood disorder (CMS/HCC) TAKE 2 CAPSULES BY MOUTH EVERY DAY IN THE EVENING 60 capsule 3 5 Active albuterol (Ventolin HFA) 108 (90 Base) MCG/ACT inhalerIndications: Mild intermittent asthma, unspecified whether complicated INHALE 2 PUFFS BY MOUTH EVERY 4 TO 6 HOURS NEEDED 18 g 5 Active cholecalciferol (Vitamin D-3) 25 MCG (1000 UT) tabletIndications:V itamin D Deficiency Take 1 tablet (25 mcg) by mouth Once per day. 90 tablet 3 5 10/17/19 26 Active Acetaminophen Extra Strength 500 MG tablet Take 1 tablet by mouth every 8 (eight) hours if needed. Active Active Problems Problem Noted Date Diagnosed Date Prediabetes 10/16/2024 Low vitamin D level 10/16/2024 Moderate recurrent major depression ([facility]) FRANCISCO JAVIER (generalized anxiety disorder) 08/30/2024 Morbid obesity with BMI of 60.0-69.9, adult ([facility]) 11/01/2023 Acute otitis externa 04/12/2018 Elevated liver enzymes [...] organization. Date Type Department Care Team Description 03/03/2025 Telephone [facility] MEDICINE [address] [place] [phone] NameYung MD TelephoneCall 01/28/2025 Telephone [facility] MED[facility]INE [address] [place] [address] Name, MD Yung 01/21/2025 3:00 PM EDT Clinical Support [facility] DIABETES/NUTRITION [address] [place] [address] Mood disorder ([facility]) (Primary Dx) 01/09/2025 2:00 PM EDT Office Visit [facility] OPTOMETRY [address] [place] [address] Sawyer, Deanna, OD Total retinal detachment, left (Primary Dx); Sensory deprivation exotropia of left eye; Dry eyes; Blindness left eye category 5, normal vision right eye; Presbyopia 01/09/2025 Travel 12/25/2024 Telephone [facility] MED[facility] [address] [facility] [place] [address] NameYung MD Prior Authorization 12/20/2024 11:15 AM EDT Office Visit [facility] [address] [facility] [place] [address] Yung Lindo MD Morbid obesity with BMI of 60.0-69.9, adult (CMS/HCC) (Primary Dx); Prediabetes; Fatty liver; Snoring; Excessive daytime sleepiness; Chronic pain of both knees; Acute otitis externa of left ear, unspecified type; Vitamin D deficiency 12/20/2024 Travel 12/19/2024 Telephone [facility] [address] [facility] [place] [address] Manjit Castillo MA CHARTPREP from Last 3 Months Immunizations Immunization Administration [...] housing situation today? I have alexyaron beard 12/20/[address] you [...] Office Visit [facility] MED[facility] [address] [place] [address] Name, MD Yung [address] [place] [address] Health Maintenance Due Date Last Done Comments [...] 01/23/2009 Dental Oral Exam 06/17/2018 12/14/2017, 07/09/2013 RSV Patients and Patients Aged 60 years or older (1 - Risk 50-74 years 1-dose series) 2019 Zoster Vaccines (1 of 2) 2019 Dental Prophylaxis 01/23/2021 07/23/2020, 1 05/30/2018, 09/24/2018, Additional history exists Dental X-Ray: Bitewings 11/18/2021 11/18/19 21, 07/23/2020, 12/14/2017, Additional history exists COVID-19 Vaccine ( season) 2024 07/24/2020, 06/26/2020 Influenza Vaccine (#1) 2024 , 01/09/2019, 02/07/2018, Additional history exists Depression Monitoring 03/25/2025 09/23/2024, 025 Alcohol/Substance Use Screening 08/30/2025 08/30/2024 Disability Screening 08/30/2025 08/30/2024 Diabetes: Hemoglobin A1C 12/20/2025 12/20/2024, 09/23 SDOH Screening 12/20/2025 12/20/2024 Tobacco Screening 01/09/2026 01/09/2025 Lipid Panel 10/11/2029 10/11/2024 DTaP/Tdap/Td Vaccines (3 - Td or Tdap) 01/05/2031 01/05/2021, 08/13/2010 Hepatitis B Vaccines Completed 04/19/2012, 11/21/2011, 10/07/2011 [...] TOTAL Routine 12/20/2024 11:57 AM EDT Prediabetes XR KNEE 3 VIEWS BILATERAL Routine 12/20/2024 11:55 AM EDT LIPID PANEL, STANDARD Routine 10/11/2024 3:17 PM EDT Mood disorder ([facility]) Morbid obesity with BMI of 60.0-69.9, adult ([facility]) Acquired hypothyroidism Chronic pain of both knees Hyperlipidemia, unspecified hyperlipidemia type Mild intermittent asthma, unspecified whether complicated Urinary incontinence, unspecified type History of anemia BITEWING - SINGLE RADIOGRAPHIC IMAGE Routine 11/17/2020 [...] Blood 12/20/2024 11:5 7 AM EDT Yung Lindo MD POINT OF CARE TEST ENTER/EDIT OR DERABLES Final Result * XR Knee 3 Views Bilateral (12/20/2024 11:55 AM EDT) Anatomical Region Laterality Modality Lower Extremities, Knee Bilateral Radiogra phic Imaging 12/20/2024 11:5 5 AM EDT Narrative 12/20/2024 1:22 [place] [address] XRay Report Signed Patient: Tiffanie Palumbo MR#: [id number] : 1970 Acct:[id number] Age/Sex: 54 / F ADM Date: 12/20/24 [facility] Attending Dr: Yung Lindo MD Ordering Physician: Yung Lindo MD Date of Service: 12/20/24 Procedure(s): XR Knee Tony 3V Accession Number(s): [id number] cc: Yung Lindo MD Exam: X-ray, bilateral knees.XR KNEE 3 VIEWS BILATERAL TECHNIQUE: 3 view lower extremity joint, bilateral knees INDICATION: Chronic bilateral knee pain COMPARISON: None available. FINDINGS: RIGHT KNEE: There is moderate medial joint space narrowing. There are moderate medial joint space osteophytes. There are small patellofemoral joint osteophytes. There are minute lateral compartment osteophytes. There is no joint effusion. LEFT KNEE: There is moderate narrowing of the medial compartment and minimal narrowing of the lateral. There is mild lateral subluxation of tibia. Moderate osteophytes present along the medial joint line and patellofemoral joint. Small volume of synovial fluid is visible in the suprapatellar pouch. XR/XR Knee Tony 3V IMPRESSION: Right knee: Moderate osteoarthritis Left knee: Moderate osteoarthritis Electronically signed by: Julien Casanova MD 12/20/2024 01:20 PM EDT Dictated By: Julien Casanova MD Signed By: <Electronically signed by Julien Casanova MD in OV> 12/20/24 1320 DD/ 1155 TD/TT: 12/20/24 1200 Office Clerk Routine: Procedure Note Braden, Image - 12/20/[address] [address] XRay Report Signed Patient: Tiffanie Palumbo AMR#: [id number] : 1970Acct:[id number] Age/Sex: 54 / FADM Date: 12/20/24 [facility]: Yung Lindo MD Ordering Physician: Yung Lindo MD Date of Service: 12/20/24 Procedure(s): XR Knee Tony 3V Accession Number(s): [id number] cc: Yung Lindo MD Exam: X-ray, bilateral knees.XR KNEE 3 VIEWS BILATERAL TECHNIQUE: 3 view lower extremity joint, bilateral knees INDICATION: Chronic bilateral knee pain COMPARISON: None available. FINDINGS: RIGHT KNEE: There is moderate medial joint space narrowing. There are moderate medial joint space osteophytes. There are small patellofemoral joint osteophytes. There are minute lateral compartment osteophytes. There is no joint effusion. LEFT KNEE: There is moderate narrowing of the medial compartment and minimal narrowing of the lateral. There is mild lateral subluxation of tibia. Moderate osteophytes present along the medial joint line and patellofemoral joint. Small volume of synovial fluid is visible in the suprapatellar pouch. XR/XR Knee Tony 3V IMPRESSION: Right knee: Moderate osteoarthritis Left knee: Moderate osteoarthritis Electronically signed by: Julien Casanova MD 12/20/2024 01:20 PM EDT Dictated By: Julien Casanova MD Signed By: <Electronically signed by Julien Casanova MD in OV> 12/20/24 1320 DD/ 1155 TD/TT: 12/20/24 1200 Office Clerk Routine: Yung Lindo MD IMG XR PROCEDURES Final Result * (ABNORMAL) Lipid Panel, Standard (10/11/2024 3:17 PM EDT) Triglycerides 146 <150 mg/dL [facility] Comment:Desirable Triglyceri de: less than 150 mg/dLBorderline High Triglyceride 150-199 mg/dLHigh Triglyceride: 200-499 mg/dLVery High Triglyceride: greater than or equal to 5OO mg/dL Cholesterol 215(H) <200 mg/dL [facility] Comment:Desirable Cholestero l: less than 200 mg/dLBorderline High Cholesterol: 200-239 mg/dLHigh Cholesterol: greater than 239 mg/dL LDL Cholesterol Calculated 139(H) <100 mg/dL [facility] Comment:Desirable LDL: less than 100 mg/dLNear Optimal/Above Optimal LDL: 110- 129 mg/dLBorderline High LDL: 130-159 mg/dLHigh LDL: 160-189 mg/dLVery High LDL: greater than or equal to 190 mg/dL HDL Cholesterol 47 >40 mg/dL [facility] Comment:Desirable HDL: great er than 40 mg/dL Note: This HDL assay may give artificially low results in patients with liver disease. Blood Venous blood specimen / Unknown 10/11/2024 3:17 PM EDT 10/11/2024 4:05 PM EDT us Yung Name LAB BLOOD ORDERABLES Final Resul t [facility] [address] [place] [phone] from Last 3 Months or Most Recently Relevant to Health Maintenance [place] [address] [place] [address] [employer] [employer] ST[place] ADULT . [address] [place] [address] [place] [address] Advance Directives Documents on File Type Date Recorded Patient Stitcher Around Expl anation Advance Directives and Living Will 09/03/2024 2:00 PM Health Care Proxy Care Teams Supervisor Byproducts Relationship Specialty Start Date End Date Name, MD Yung [address] [place] [phone] PCP - General Internal Medicine 10/23/23
--- OUTSIDE RECORDS SUMMARY | 2025-03-07 18:49 | XMS_ITS | Clinical Summary ---
Author Organization [facility] Address [address] [place] [address] Care Team Providers Care Remote Recruiter Name Role Phone Unavailable Primary Care Provider Unavailabl e Source Comments PLEASE NOTE, if this patient is a minor, it may be UNLAWFUL to discuss sensitive information that is contained in these records (such as FAMILY PLANNING, MENTAL HEALTH or SUBSTANCE ABUSE) with the minor patient's parent or other person without the patient's specific authorization.[facility] Allergies No known active allergies Medications simvastatin (ZOCOR) 40 mg tabletIndications:H yperlipidemia, unspecified hyperlipidemia type Take 40 mg by mouth nightly at bedtime. 5 Active lisinopriL 20 mg tabletIndications:B enign essential hypertension Take 20 mg by mouth every morning. 5 Active albuterol HFA 90 mcg/actuation inhalerIndications: Mild intermittent asthma, unspecified whether complicated Inhale 2 Puffs into the lungs every 4 to 6 (four to six) hours as needed. 5 Active propranoloL (INDERAL) 40 mg tablet Take 40 mg by mouth daily. 5 Active ferrous sulfate 325 mg (65 mg iron) tablet Take 325 mg by mouth once daily with breakfast. 5 Active levothyroxine 88 mcg tabletIndications:A cquired hypothyroidism Take 88 mcg by mouth every morning. 5 Active cholecalciferol (VITAMIN D-3) 25 mcg (1,000 unit) tablet Take 25 mcg by mouth daily. 5 10/17/19 26 Active venlafaxine XR (EFFEXOR XR) 75 mg 24 hr capsuleIndications: Moderate recurrent major depression,FRANCISCO JAVIER (generalized anxiety disorder) Take 1 Capsule by mouth once daily with breakfast. 30 Capsule 5 Active Active Problems Problem Noted Date Diagnosed Date Prediabetes 10/16/2024 FRANCISCO JAVIER (generalized anxiety disorder) 08/30/2024 Assessment & Plan (02/19/2025 7:55 AM EDT): A: anxiety P: cont effexor xr today to 75 mg qam. Cont therapy with [facility] at [facility]. Pt to reach out to book appt today Assessment & Plan (01/28/2025 3:55 PM EDT): A: anxiety P: Increase effexor xr today to 75 mg qam. Cont therapy with O[facility] at [facility]. DC prozac Assessment & Plan (01/01/2025 7:25 AM EDT): A: anxiety P: taper and dc prozac, add effexor xr Moderate recurrent major depression 08/30/2024 Assessment & Plan (02/19/2025 7:55 AM EDT): A: depressed mood P: continue effexor xr 75 mg po qam. Cont therapy, self care. Assessment & Plan (01/28/2025 3:55 PM EDT): A: depressed mood P: STOP prozac, increase effexor xr to 75 mg po qam. Cont therapy, self care. Assessment & Plan (01/01/2025 7:25 AM EDT): A: depressed mood, feels prozac no longer effective P: taper and dc prozac, add effexor xr 37.5 mg po qam xs 2 weeks then in crease to 75 mg po qam. Cont therapy, self care. Morbid obesity with body mass index of 60.0-69.9 in adult 11/01/2023 Dystrophia unguium 11/01/2017 Elevated liver enzymes 11/01/2017 Hyperuricemia 01/03/2017 Vitamin D deficiency 01/03/2017 Acquired hypothyroidism 11/04/2016 Anemia 11/04/2016 Benign essential hypertension 11/04/2016 Hyperlipidemia 11/04/2016 Migraine 11/04/2016 Mild intermittent asthma 11/04/2016 Multiple joint pain 11/04/2016 Seasonal allergic rhinitis 11/04/2016 Encounters Date Type Department Care Team Description 02/18/2025 9:30 AM EDT Behavioral Health Visit [facility] [address] [place] [phone] Alonso Kuhn, PMHNP 01/28/2025 10:00 AM EDT Behavioral Health Visit [facility] [address] [place], [place] [address] Alonso Kuhn, PMHNP 12/31/2024 11:00 AM EDT Behavioral Health Visit [facility] [address] [place], [place] [address] Alonso Kuhn, PMHNP from Last 3 Months Social History Tobacco Use Types Packs/Day Years Used Date Smoking Tobacco: Never Assessed Comments Unknown Sex and Gender Information Value Date Recorded Sex Assigned at Female 10/23/2024 8:42 AM PDT Legal Sex Female 8:42 AM PDT Gender Identity Female 10/23/2024 8:42 AM PDT Sexual Orientation Not on file Plan of Treatment Upcoming Encounters Date Type Department Care Team ([facility] Contact Info) Description 03/25/2025 9:30 AM EST Behavioral Health Visit [facility] [address] [place] [phone] Alonso Kuhn, PMHNP [address] [facility] [place] [phone] Health Maintenance Due Date Last Done Comments Anxiety Screening 1970 Depression Monitoring 1970 HPV Screening (self-collect) 1970 HPV Screening 1970 Hepatitis C Screening 1970 Pap + HPV 1969 Tobacco Screening 1969 HIV Screening 1984 Cervical Cancer Screening 1990 Pap Smear 1990 Breast Cancer Screening (Mammogram) 2009 CT Colonography 2014 Colonoscopy 2014 Colorectal Cancer Screening 2014 FIT/gFOBT 2014 Fecal DNA 2014 Flexible Sigmoidoscopy 2014 Imm-RSV (adult) (1 - Risk 50 -74 years 1-dose series) 2019 Imm-Zoster, Recombinant (1 of 2) 2019 Alcohol and Drug Screen 04/24/2024 Psl-BCKST-33 (3 - season) 2024 021, 06/26/2020 Imm-Influenza (#1) 2024 01/08/2020, 0 01/09/2019, 02/07/2018, Additional history exists Lipid Screening 10/11/2025 10/11/2024 TSH Monitoring 10/11/2025 10/11/2024 Diabetes Screening 12/20/2025 12/20/2024, 0 10/11/2024, 10/11/2024, Additional history exists Imm-DTaP/Tdap/Td (3 - Td or Tdap) 01/05/2031 021, 08/13/2010 Imm-Hepatitis B Completed 04/19/2012, 10/24, 10/07/2011 Imm-Pneumococcal 50+ Completed 11/01/2023 Cervical Ablation/Cold-Knife Conization Discontinued Cervical Cryotherapy Discontinued Colposcopy Discontinued Excision/Leep Discontinued HPV Genotyping Discontinued Vaginal Pap Discontinued Vulvoscopy Discontinued Insurance [facility] [place] [address]
== END 2025-03-07 12:53 | disposition home or self-care (01) ==
LOC: HO.HOSX 12:52
DX: M65.342 Trigger finger, left ring finger (principal); M65.341 Trigger finger, right ring finger; R20.0 Anesthesia of skin; R20.2 Paresthesia of skin
CPT/HCPCS: 73130

== ENCOUNTER 2025-03-07 14:23 | Outpatient (AMB) | payer MEDICAID, SELFPAY ==
--- NOTE | 2025-03-07 14:29 | A.OFFVIS_ITS ---
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 Hx of left hand surgery many years ago for trigger finger release in [facility]. She reports her hands are equally as bad. 4th & 5th digits of her B/L hands are now locking and ramping. She can not make a full closed fist. Gripping, squeezing are difficult for her and she lacks strength. She has done some home exercise with no relief. Says her PCP is prescribing her weight koss injections she is waiting on approval for. Patient is pre-diabetic. She has some tingling that radiates into her forearm and 3rd and 4th digits of bilateral hands. Says she has arthritis and many years ago she had EMG/NCS done here at [facility]. 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 Hx of left hand surgery many years ago for trigger finger release in [facility]. She reports her hands are equally as bad. 4th digits of her B/L hands are now locking and ramping. She can not make a full closed fist. Gripping, squeezing are difficult for her and she lacks strength. She has done some home exercise with no relief. Says her PCP is prescribing her weight loss injections she is waiting on approval for. Patient is pre-diabetic. She has some tingling that radiates into her forearm and 3rd and 4th digits of bilateral hands. Says she has arthritis and many years ago she had EMG/NCS done here at [facility], and states that this showed carpal tunnel syndrome. [facility] Social History (Updated 03/07/25 @ 14:42 by MARILU Schwartz) Alcohol intake: never Patient Tobacco Use Status: Never used Tobacco Current occupational status: employed Review of Systems Const All systems reviewed & are unremarkable except as noted in HPI and below Physical Exam Extrem Other: Patient is alert, oriented, and in no acute distress. Neuro: Diminished sensation in the median nerve distribution of bilateral hands in the office today Normal sensation of the tips of all digits of the ulnar nerve distribution of bilateral hands in the office today Vascular: Cap refill brisk Pain: No tenderness to palpation of the A1 pulleys of bilateral ring fingers No pain with range of motion of bilateral hands ROM: Patient is able to make a closed fist and extend all digits of bilateral hands fully and without difficulty No visible or palpable locking and catching Skin: No lacerations or abrasions. General: No ecchymosis, erythema, or evidence of infection. Psych: Appears grossly normal Affect normal Attitude cooperative Assessment & Plan Assessment & Plan (1) Acquired trigger finger of both ring fingers: Code(s): M65.341 - Trigger finger, right ring finger; M65.342 - Trigger finger, left ring finger Category: Medical (2) Numbness and tingling in both hands: Code(s): R20.0 - Anesthesia of skin; R20.2 - Paresthesia of skin Category: Medical Plan 1. Numbness and tingling of both hands 2. Bilateral ring finger trigger finger Patient is educated about these conditions Patient is educated about the typical treatment course At this time, patient states she would like to proceed with trigger releases of bilateral ring fingers However, I do feel that we need to update the EMG and nerve conduction study to assess the health of the nerves of bilateral hands, as she is experiencing numbness and tingling I have advised the patient that I feel we should hold off on getting signed up for trigger releases until after we get EMG and nerve conduction study in case there are any further surgical interventions indicated for potential findings Patient understands this and is amenable to this plan EMG ordered Patient will follow-up after EMG and nerve conduction study for results review and discussion of further treatment options, sooner with any acute concerns Orders: Orders XR Hand Bilat min 3v Today M79.643 - Pain in unspecified hand NE electromyogram (EMG) Today R20.0 - Anesthesia of skin, R20.2 - Paresthesia of skin NE nerve conduction velocity Today R20.0 - Anesthesia of skin, R20.2 - Paresthesia of skin Coding Level of Care Code New Pt Level 3 (85096) Diagnoses Acquired trigger finger of both ring fingers M65.341; M65.342 Numbness and tingling in both hands R20.0; R20.2
== END 2025-03-07 14:51 | disposition home or self-care (01) ==
LOC: HO.HOS 14:24
PROVIDERS: PCP Internal Medicine Geriatric Medicine
DX: M65.341 Trigger finger, right ring finger (principal); M65.342 Trigger finger, left ring finger; R20.0 Anesthesia of skin; R20.2 Paresthesia of skin
CPT/HCPCS: 99203

== ENCOUNTER → 2025-03-07 14:26 | Outpatient (BNV) | payer MEDICAID, SELFPAY | PROVIDERS: Visit Provider Radiology Diagnostic Radiology | DX: M19.042 Primary osteoarthritis, left hand (principal); M19.041 Primary osteoarthritis, right hand | CPT/HCPCS: 73130 ==

== ENCOUNTER 2025-03-24 08:35 | Outpatient (AMB) | payer MEDICAID, SELFPAY ==
--- NOTE | 2025-03-24 08:38 | MHC.OFFVIS ---
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 Today patient reports constant pain with her left knee being the worse. She has been seen in the past with Dr. Stevens, she was given injections, however these only provided a little relief that did not last long. States that she feels her knee feels as if it is shifting inside. Complaints of knees giving out. No recent treatment, only x-rays. 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 She had injections in the past with Dr Stevens which were helpful for a few months. She c/o some instability with walking and feels the knee is shifting when she is at rest. She has difficulty with walking stairs and long distanes. [facility] Social History Alcohol intake: never Patient Tobacco Use Status: Never used Tobacco Current occupational status: employed Review of Systems Const All systems reviewed & are unremarkable except as noted in HPI and below Physical Exam Const General: cooperative and no acute distress Orientation/consciousness: patient oriented x3 Resp Effort & Inspection: normal respiratory effort and able to speak in complete sentences Cardio Peripheral pulses: Peripheral pulses 2+ throughout Neuro General: patient oriented x3 Extrem Other: Bilateral knees are normal to inspection. Full range of motion with crepitus bilaterally. She has medial joint line tenderness and lateral retropatellar tenderness. Neurovascularly intact Office Procedures AMB Joint Injection/Aspiration Joint Injection/Aspiration Primary Site: Right Knee Secondary Site: Left Knee Prep: site was prepped using aseptic technique, ethochloride spray was applied and injection warnings given Injected: 40 mg of, Decadron, with 3 mL of, 1% plain Lidocaine, 0.25% Bupivacaine and in the joint Approach Used: anterolateral Procedure: The patient tolerated the procedure well and there was some relief with the local anesthesia Coding 51152 - Glenohumeral/Tronchanteric Bursa/Intraarticular Procedure code (CPT) selection complete Results Reviewed Results Reviewed: X-rays of both knees obtained in the office today and reviewed by me show severe degenerative changes with varus deformity on the left Assessment & Plan Assessment & Plan (1) Osteoarthritis of knees, bilateral: Code(s): M17.0 - Bilateral primary osteoarthritis of knee Category: Medical Plan: We discussed options today which include conservative management with physical therapy. An order was placed today and the patient will contact them to make an appointment. We also discussed the role of steroid injections in its benefits on pain and inflammation. She did consent to proceed with bilateral knee steroid injection which she tolerated well. A an order for bilateral knee gel injections was also placed and once this is approved we will contact the patient to schedule. 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 I will see the patient back once the gel is approved. Orders: Orders XR Knee Tony 1or 2V Today M25.561 - Pain in right knee, M25.562 - Pain in left knee PT Evaluation and Treatment Today M17.0 - Bilateral primary osteoarthritis of knee Coding Level of Care Code Complex visit Add On G2211 Diagnoses Osteoarthritis of knees, bilateral M17.0 CPT Codes Coding - Joint 7: 66342 - Glenohumeral/Tronchanteric Bursa/Intraarticular ([id number])
--- OUTSIDE RECORDS SUMMARY | 2025-03-24 09:02 | XMS_ITS | Encounter Summary ---
Author Organization [employer] Address [address] [facility] [address] [place] [address] Care Team Providers Care Dive Master Name Role Phone Tasha Benson MD Primary Care Provider + Yung Lindo MD Primary Care Provider [phone] Encounter Details Date Type Department Care Team (Latest Contact Info) Description 07/23/2020 Abstract [facility] CONVERSIONS Dental, Provider, DDS Social History [...] as of this encounter Plan of Treatment Not on file documented as of this encounter Visit Diagnoses Not on filedocumented in this encounter Care Teams Dive Master Relationship Specialty Start Date End Date Tasha Benson MD [address] [place] [phone] PCP - General Internal Medicine 08/10/23 10/22/23 Yung Lindo MD [address] [place] [id number] PCP - General Internal Medicine 10/23/23 documented as of this encounter
--- OUTSIDE RECORDS SUMMARY | 2025-03-24 09:02 | XMS_ITS | Clinical Summary ---
Author Organization [employer] Address [address] [facility] 7t [place] [address] Care Team Providers Care Railroad Crane Operator Name Role Phone Name, Yung MENDEZ Primary Care Provider [phone] Allergies No known active allergies Medications * This document contains information received from the source organization and may not represent a complete record from that organization. levothyroxine (Synthroid, Levoxyl) 88 MCG tablet TAKE 1 TABLET BY MOUTH EVERY MORNING 90 tablet 3 08/31/19 25 Active FLUoxetine (PROzac) 20 MG capsuleIndication s:Mood disorder (CMS/HCC) TAKE 2 CAPSULES BY MOUTH EVERY DAY IN THE EVENING 60 capsule 3 08/31/19 25 Active cholecalciferol (Vitamin D-3) 25 MCG (1000 UT) tabletIndications :Vitamin D Deficiency Take 1 tablet (25 mcg) by mouth Once per day. 90 tablet 3 10/17/19 25 026 Active Acetaminophen Extra Strength 500 MG tablet Take 1 tablet by mouth every 8 (eight) hours if needed. Active ferrous sulfate (FeroSul) 325 (65 Fe) MG tablet TAKE 1 TABLET BY MOUTH EVERY DAY AT NOON 90 tablet 03/17/20 25 Active simvastatin (Zocor) 40 MG tabletIndications :Hyperlipidemia, unspecified hyperlipidemia type TAKE 1 TABLET BY MOUTH EVERY DAY AT BEDTIME 90 tablet 03/17/20 25 Active propranolol (Inderal) 40 MG tablet TAKE 1 TABLET BY MOUTH EVERY DAY 90 tablet 03/17/20 25 Active lisinopril 20 MG tablet TAKE 1 TABLET BY MOUTH EVERY DAY IN THE MORNING 90 tablet 03/17/20 25 Active albuterol (Ventolin HFA) 108 (90 Base) MCG/ACT inhalerIndication s:Mild intermittent asthma, unspecified whether complicated INHALE 2 PUFFS BY MOUTH EVERY 4 TO 6 HOURS NEEDED 18 g 03/17/20 Active ferrous sulfate (FeroSul) 325 (65 Fe) MG tablet TAKE 1 TABLET BY MOUTH EVERY DAY AT NOON 90 tablet 07/18/19 25 025 Discontinued(R eorder (will not trigger notification to Pharmacy)) simvastatin (Zocor) 40 MG tabletIndications :Hyperlipidemia, unspecified hyperlipidemia type TAKE 1 TABLET BY MOUTH EVERY DAY AT BEDTIME 90 tablet 08/31/19 025 Discontinued(R eorder (will not trigger notification to Pharmacy)) propranolol (Inderal) 40 MG tablet Take 1 tablet (40 mg) by mouth Once per day. 90 tablet 08/31/19 25 025 Discontinued(R eorder (will not trigger notification to Pharmacy)) lisinopril 20 MG tablet TAKE 1 TABLET BY MOUTH EVERY DAY IN THE MORNING 90 tablet 08/31/19 025 Discontinued(R eorder (will not trigger notification to Pharmacy)) albuterol (Ventolin HFA) 108 (90 Base) MCG/ACT inhalerIndication s:Mild intermittent asthma, unspecified whether complicated INHALE 2 PUFFS BY MOUTH EVERY 4 TO 6 HOURS NEEDED 18 g 08/31/19 25 025 Discontinued(R eorder (will not trigger notification to Pharmacy)) Active Problems Problem Noted Date Diagnosed Date Prediabetes 10/16/2024 Low vitamin D level 10/16/2024 Moderate recurrent major depression ([facility]) FRANCISCO JAVIER (generalized anxiety disorder) 08/30/2024 Morbid obesity with BMI of 60.0-69.9, adult ([facility] /[facility]) 11/01/2023 Acute otitis externa 04/12/2018 Elevated liver enzymes 11/01/2017 Dystrophia unguium 11/01/2017 Hyperuricemia 01/03/2017 Vitamin D deficiency 01/03/2017 Positive BREN (antinuclear antibody) 01/03/2017 Mood disorder 11/04/2016 Mild intermittent asthma 11/04/2016 Migraine 11/04/2016 Hyperlipidemia 11/04/2016 Benign essential hypertension 11/04/2016 Aphakia 11/04/2016 Anemia 11/04/2016 Acquired hypothyroidism 11/04/2016 Seasonal allergic rhinitis 11/04/2016 Multiple joint pain 11/04/2016 Encounters Date Type Department Care Team Description 03/17/2025 Telephone [facility] MEDICINE [address] [place] [address] Yung Lindo MD Chart Prep 03/15/2025 Refill [facility] MEDICINE [address] [place] [address] Yung Lindo MD Hyperlipidemia, unspecified hyperlipidemia type; Mild intermittent asthma, unspecified whether complicated 03/03/2025 Telephone [facility] MEDICINE [address] [place] [address] Yung Lindo MD TelephoneCall 01/28/2025 Telephone [facility] [address] [place] [address] Yung Lindo MD 01/21/2025 3:00 PM EDT Clinical Support [facility] DIABETES/NUTRITION [address] [place] [address] Mood disorder ([facility]) (Primary Dx) 01/09/2025 2:00 PM EDT Office Visit [facility] OPTOMETRY [address] [place] [address] Sawyer, Deanna, OD Total retinal detachment, left (Primary Dx); Sensory deprivation exotropia of left eye; Dry eyes; Blindness left eye category 5, normal vision right eye; Presbyopia 01/09/2025 Travel 12/25/2024 Telephone [facility] MEDICINE [address] [place] [address] Yung Lindo MD Prior Authorization from Last 3 Months Immunizations Immunization Administration [...] 12/20/2024 11:26 AM EDT Plan of Treatment Health Maintenance Due Date Last Done Comments [...] TOTAL Routine 12/20/2024 11:57 AM EDT Prediabetes LIPID PANEL, STANDARD Routine 10/11/2024 3:17 PM EDT Mood disorder (CMS/HCC) Morbid obesity with BMI of 60.0-69.9, adult (CMS/HCC) Acquired hypothyroidism Chronic pain of both knees [...] 41,627 Blood 12/20/2024 11:5 7 AM EDT us Yung Lindo MD POINT OF CARE TEST ENTER/EDIT OR DERABLES Final Result * (ABNORMAL) Lipid Panel, Standard (10/11/2024 3:17 PM EDT) Triglycerides 146 <150 mg/dL [facility] Comment:Desirable Triglyceri de: less than 150 mg/dLBorderline High Triglyceride 150-199 mg/dLHigh Triglyceride: 200-499 mg/dLVery High Triglyceride: greater than or equal to 5OO mg/dL Cholesterol 215(H) <200 mg/dL [facility] Comment:Desirable Cholestero l: less than 200 mg/dLBorderline High Cholesterol: 200-239 mg/dLHigh Cholesterol: greater than 239 mg/dL LDL Cholesterol Calculated 139(H) <100 mg/dL [facility] Comment:Desirable LDL: less than 100 mg/dLNear Optimal/Above Optimal LDL: 110- 129 mg/dLBorderline High LDL: 130-159 mg/dLHigh LDL: 160-189 mg/dLVery High LDL: greater than or equal to 190 mg/dL HDL Cholesterol 47 >40 mg/dL [facility] Comment:Desirable HDL: great er than 40 mg/dL Note: This HDL assay may give artificially low results in patients with liver disease. Blood Venous blood specimen / Unknown 10/11/2024 3:17 PM EDT 10/11/2024 4:05 PM EDT us Yung Lindo MD LAB BLOOD ORDERABLES Final Resul t [facility] [address] [place] [phone] from Last 3 Months or Most Recently Relevant to Health Maintenance Insurance [facility] C3 DENTAL[facility] MEDICAID STAND ADULT Advance Directives Documents on File Type Date Recorded Patient Medical Claims Assistant Expl anation Advance Directives and Living Will 09/03/2024 2:00 PM Health Care Proxy Care Teams Railroad Crane Operator Relationship Specialty Start Date End Date Name, MD Yung [address] [place] [address] PCP - General Internal Medicine 10/23/23
--- OUTSIDE RECORDS SUMMARY | 2025-03-24 09:02 | XMS_ITS | Encounter Summary ---
Author Organization [employer] Address [address] [facility] [address] [address]t [place] [address] Care Team Providers Care Rn Oncology Name Role Phone Name, Yung MENDEZ Primary Care Provider [phone] Reason for Visit * Reason Onset Date Comments Nurse Triage 05/08/2024 Encounter Details Date Type Department Care Team ([facility] st Contact Info) Description 05/08/2024 Telephone [facility] MEDICINE [address] [place], [place] [phone] Name, MD Yung [address] [place] [address] Nurse Triage Social History Tobacco Use Types [...] and Pt is advised to come to [facility] for provider to check for UTI. Pt [...] documented in this encounter Plan of Treatment Not on file documented as of this encounter Visit Diagnoses Not on filedocumented in this encounter Additional Health Concerns Assessment Noted Time PHQ-9 Depression Total Score: 15 024 10:18 AM EDT documented as of this encounter Care Teams Rn Oncology Relationship Specialty Start Date End Date Name, MD Yung [address] [place] [address] PCP - General Internal Medicine 10/23/23 documented as of this encounter
--- OUTSIDE RECORDS SUMMARY | 2025-03-24 09:02 | XMS_ITS | Encounter Summary ---
Author Organization [employer] Address [address] [place] [address] 7t [place] [address] Care Team Providers Care Creative Specialist Name Role Phone Tasha Benson MD Primary Care Provider + Yung Lindo MD Primary Care Provider [phone] Reason for Visit * Reason Comments Med Refill Encounter Details Date Type Department Care Team (Late st Contact Info) Description 02/16/2023 Refill [facility] MED & PEDS [address] [place], [place] [phone] Marita Kowalski DO [address] [place], [place] [phone] Hyperlipidemia, unspecified hyperlipidemia type Social History Tobacco [...] type documented in this encounter Care Teams Creative Specialist Relationship Specialty Start Date End Date Tasha Benson MD [address] [place], [place] [phone] PCP - General Internal Medicine 08/10/23 10/22/23 Yung Lindo MD [address] [place] [address] PCP - General Internal Medicine 10/23/23 documented as of this encounter
--- OUTSIDE RECORDS SUMMARY | 2025-03-24 09:02 | XMS_ITS | Encounter Summary ---
Author Organization [employer] Address [address] [place] [address] 7t [place] [address] Care Team Providers Care Centerless Grinder Set Up Operator Name Role Phone Tasha Benson MD Primary Care Provider + Yung Lindo MD Primary Care Provider [phone] Reason for Visit * Reason Comments Med Refill Encounter Details Date Type Department Care Team (Late st Contact Info) Description 10/28/2022 Refill [facility] MEDICINE [address] [place], [place] [phone] Anabell Cloud MD [address] [place], [place] [phone] Social History Tobacco Use Types Packs/Day Years [...] on filedocumented in this encounter Care Teams Centerless Grinder Set Up Operator Relationship Specialty Start Date End Date Tasha Benson MD [address] [place] [address] [phone] PCP - General Internal Medicine 08/10/23 10/22/23 Yung Lindo MD [address] [place] [address] PCP - General Internal Medicine 10/23/23 documented as of this encounter
--- OUTSIDE RECORDS SUMMARY | 2025-03-24 09:02 | XMS_ITS | Encounter Summary ---
Author Organization [employer] Address [address] [place] [address] 7t [place] [address] Care Team Providers Care Damper Worker Name Role Phone Tasha Benson MD Primary Care Provider + Yung Lindo MD Primary Care Provider [phone] Reason for Visit * Reason Comments Med Refill Encounter Details Date Type Department Care Team (Late st Contact Info) Description 05/10/2023 Refill [facility] MEDICINE [address] [place], [place] [phone] Anabell Cloud MD [address] [place], [place] [phone] Social History Tobacco Use Types Packs/Day Years [...] on filedocumented in this encounter Care Teams Damper Worker Relationship Specialty Start Date End Date Tasha Benson MD [address] [place] [address] [phone] PCP - General Internal Medicine 08/10/23 10/22/23 Yung Lindo MD [address] [place] [address] PCP - General Internal Medicine 10/23/23 documented as of this encounter
--- OUTSIDE RECORDS SUMMARY | 2025-03-24 09:02 | XMS_ITS | Encounter Summary ---
Author Organization [employer] Address [address] [facility] 7t [place] [address] Care Team Providers Care Electronic Publishing Specialist Name Role Phone Tasha Benson MD Primary Care Provider + Yung Lindo MD Primary Care Provider [phone] Encounter Details Date Type Department Care Team (Latest Contact Info) Description 03/29/2019 Abstract [facility] CONVERSIONS Dental, Provider, DDS Social History Tobacco [...] on filedocumented in this encounter Care Teams Electronic Publishing Specialist Relationship Specialty Start Date End Date Tasha Benson MD [address] [place] [phone] PCP - General Internal Medicine 08/10/23 10/22/23 Yung Lindo MD [address] [place] [address] PCP - General Internal Medicine 10/23/23 documented as of this encounter
--- OUTSIDE RECORDS SUMMARY | 2025-03-24 09:02 | XMS_ITS | Encounter Summary ---
Author Organization [employer] Address [address] [facility] [address] 7t [place] [address] Care Team Providers Care Neurourologist Name Role Phone Name, Yung MENDEZ Primary Care Provider [phone] Reason for Visit * Reason Onset Date Comments Nurse Triage 11/04/2024 Encounter Details Date Type Department Care Team ([facility] st Contact Info) Description 11/04/2024 Telephone [facility] MEDICINE [address] [place], [place] [phone] Name, MD Yung [address] [place] [address] Nurse Triage Social History Tobacco Use Types [...] home care suggested and will come to [facility] if needed. Protocol Used: Headache [...] acuity questions The caller accepted this outcome. [id number] documented in this encounter Plan of Treatment Not on file documented as of this encounter Visit Diagnoses Not on filedocumented in this encounter Additional Health Concerns Assessment Noted Time PHQ-9 Depression Total Score: 15 025 11:44 AM EDT documented as of this encounter Care Teams Neurourologist Relationship Specialty Start Date End Date Name, MD Yung [address] [place] [id number] PCP - General Internal Medicine 10/23/23 documented as of this encounter
--- OUTSIDE RECORDS SUMMARY | 2025-03-24 09:02 | XMS_ITS | Encounter Summary ---
Author Organization [employer] Address [address] [facility] 7t [place] [address] Care Team Providers Care Traffic Sign Erection Supervisor Name Role Phone Tasha Benson MD Primary Care Provider + Yung Lindo MD Primary Care Provider Encounter Details Date Type Department Care Team (Late st Contact Info) Description 02/16/2023 Orders Only [facility] MED & PEDS [address] [place], [place] [phone] Marita Brandt LPN Social History Tobacco Use [...] on filedocumented in this encounter Care Teams Traffic Sign Erection Supervisor Relationship Specialty Start Date End Date Tasha Benson MD [address] [place], [place] [phone] PCP - General Internal Medicine 08/10/23 10/22/23 Yung Lindo MD [address] [place], [place] [phone] PCP - General Internal Medicine 10/23/23 documented as of this encounter
== END 2025-03-24 11:26 | disposition home or self-care (01) ==
LOC: HO.HOS 08:36
PROVIDERS: PCP Internal Medicine Geriatric Medicine; Visit Provider Physician Assistant
DX: M17.0 Bilateral primary osteoarthritis of knee (principal)
CPT/HCPCS: 20610

== ENCOUNTER → 2025-03-24 08:38 | Outpatient (BNV) | payer MEDICAID, SELFPAY | PROVIDERS: Visit Provider Radiology Diagnostic Ultrasound | DX: M17.0 Bilateral primary osteoarthritis of knee (principal) | CPT/HCPCS: 73560 ==

== ENCOUNTER 2025-03-24 09:21 | Outpatient (REF) | payer MEDICAID, SELFPAY ==
--- NOTE | ~2025-03-24 | XR_ITS ---
EXAMINATION: X-ray bilateral knees CLINICAL INFORMATION: Pain COMPARISON: X-ray 12/20/2024 TECHNIQUE: 1 AP view bilateral knees. 1 sunrise view bilateral knees FINDINGS: Right knee: Moderate medial compartment arthritis. Mild lateral and patellofemoral arthritis. No acute fracture or dislocation. No suspicious bony lesion. Left knee: Severe medial compartment arthritis. Genu varus. Mild lateral and patellofemoral arthritis... No acute fracture or dislocation. No suspicious bony lesion. XR/XR Knee Tony 1or 2V IMPRESSION: Right knee: Arthritis. Moderate medial compartment arthritis. Left knee: Arthritis. Severe medial compartment arthritis. Electronically signed by: Luigi Cotter MD 03/24/2025 11:21 AM ANIBAL
--- OUTSIDE RECORDS SUMMARY | 2025-03-27 10:28 | XMS_ITS | Encounter Summary ---
Author Organization [employer] Address [address] [place] [address] 7t [place] [address] Care Team Providers Care Apprentice Painter Neckties Name Role Phone Tasha Benson MD Primary Care Provider + Yung Lindo MD Primary Care Provider [phone] Reason for Visit * Reason Comments Med Refill Encounter Details Date Type Department Care Team (Late st Contact Info) Description 10/28/2022 Refill [facility] MEDICINE [address] [place], [place] [phone] Anabell Cloud MD [address] [place], [place] [phone] Social History Tobacco Use Types Packs/Day Years [...] on filedocumented in this encounter Care Teams Apprentice Painter Neckties Relationship Specialty Start Date End Date Tasha Benson MD [address] [place] [address] [phone] PCP - General Internal Medicine 08/10/23 10/22/23 Yung Lindo MD [address] [place] [address] PCP - General Internal Medicine 10/23/23 documented as of this encounter
--- OUTSIDE RECORDS SUMMARY | 2025-03-27 10:28 | XMS_ITS | Encounter Summary ---
Author Organization [employer] Address [address] [facility] 7t [place] [address] Care Team Providers Care Production Staff Worker Name Role Phone Tasha Benson MD Primary Care Provider + Yung Lindo MD Primary Care Provider [phone] Encounter Details Date Type Department Care Team (Late st Contact Info) Description 02/16/2023 Orders Only [facility] MED & PEDS [address] [place], [place] [phone] Marita Brandt LPN Social History Tobacco Use [...] on filedocumented in this encounter Care Teams Production Staff Worker Relationship Specialty Start Date End Date Tasha Benson MD [address] [place], [place] [phone] PCP - General Internal Medicine 08/10/23 10/22/23 Yung Lindo MD [address] [place], [place] [phone] PCP - General Internal Medicine 10/23/23 documented as of this encounter
--- OUTSIDE RECORDS SUMMARY | 2025-03-27 10:28 | XMS_ITS | Encounter Summary ---
Author Organization [employer] Address [address] [place] [address] 7t [place] [address] Care Team Providers Care Fleet Manager Name Role Phone Tasha Benson MD Primary Care Provider + Yung Lindo MD Primary Care Provider [phone] Reason for Visit * Reason Comments Med Refill Encounter Details Date Type Department Care Team (Late st Contact Info) Description 05/10/2023 Refill [facility] MEDICINE [address] [place], [place] [phone] Anabell Cloud MD [address] [place], [place] [phone] Social History Tobacco Use Types Packs/Day Years [...] on filedocumented in this encounter Care Teams Fleet Manager Relationship Specialty Start Date End Date Tasha Benson MD [address] [place] [address] [phone] PCP - General Internal Medicine 08/10/23 10/22/23 Yung Lindo MD [address] [place] [address] PCP - General Internal Medicine 10/23/23 documented as of this encounter
--- OUTSIDE RECORDS SUMMARY | 2025-03-27 10:28 | XMS_ITS | Encounter Summary ---
Author Organization [employer] Address [address] [facility] 7t [place] [address] Care Team Providers Care Motorcycle Service Technician Name Role Phone Tasha Benson MD Primary Care Provider + Yung Lindo MD Primary Care Provider [phone] Encounter Details Date Type Department Care Team [...] on filedocumented in this encounter Care Teams Motorcycle Service Technician Relationship Specialty Start Date End Date Tasha Benson MD [address] [place] [address] PCP - General Internal Medicine 08/10/23 10/22/23 Yung Lindo MD [address] [place] [address] PCP - General Internal Medicine 10/23/23 documented as of this encounter
--- OUTSIDE RECORDS SUMMARY | 2025-03-27 10:28 | XMS_ITS | Encounter Summary ---
Author Organization [employer] Address [address] [place] [address] 7t [place] [address] Care Team Providers Care Rail Splitter Name Role Phone Tasha Benson MD Primary Care Provider + Yung Lindo MD Primary Care Provider [phone] Reason for Visit * Reason Comments Med Refill Encounter Details Date Type Department Care Team (Late st Contact Info) Description 02/16/2023 Refill [facility] CHC MED & PEDS [address] [place], [place] [phone] Marita Kowalski DO [address] [place], [place] [phone] Hyperlipidemia, unspecified hyperlipidemia type Social History Tobacco [...] type documented in this encounter Care Teams Rail Splitter Relationship Specialty Start Date End Date Tasha Benson MD [address] [place], [place] [phone] PCP - General Internal Medicine 08/10/23 10/22/23 Yung Lindo MD [address] [place] [address] PCP - General Internal Medicine 10/23/23 documented as of this encounter
--- OUTSIDE RECORDS SUMMARY | 2025-03-27 10:28 | XMS_ITS | Encounter Summary ---
Author Organization [employer] Address [address] [facility] [address] 7t [place] [address] Care Team Providers Care Patient Services Assistant Name Role Phone Name, Yung MENDEZ Primary Care Provider [phone] Reason for Visit * Reason Onset Date Comments Nurse Triage 05/08/2024 Encounter Details Date Type Department Care Team ([facility] st Contact Info) Description 05/08/2024 Telephone [facility] MEDICINE [address] [place], [place] [phone] Name, MD Yung [address] [place] [address] Nurse Triage Social History Tobacco Use Types [...] and Pt is advised to come to [facility] for provider to check for [...] documented as of this encounter Care Teams Patient Services Assistant Relationship Specialty Start Date End Date Name, MD Yung [address] [place] [address] PCP - General Internal Medicine 10/23/23 documented as of this encounter
--- OUTSIDE RECORDS SUMMARY | 2025-03-27 10:28 | XMS_ITS | Encounter Summary ---
Author Organization [employer] Address [address] [facility] 7t [place] [address] Care Team Providers Care Astronomy Instructor Name Role Phone Tasha Benson MD Primary Care Provider + Yung Lindo MD Primary Care Provider [phone] Encounter Details Date Type Department Care Team (Latest Contact Info) Description 03/29/2019 Abstract [facility] CONVERSIONS Dental, Provider, DDS Social [...] on filedocumented in this encounter Care Teams Astronomy Instructor Relationship Specialty Start Date End Date Tasha Benson MD [address] [place] [phone] PCP - General Internal Medicine 08/10/23 10/22/23 Yung Lindo MD [address] [place] [phone] PCP - General Internal Medicine 10/23/23 documented as of this encounter
--- OUTSIDE RECORDS SUMMARY | 2025-03-27 10:28 | XMS_ITS | Encounter Summary ---
Author Organization [employer] Address [address] [facility] [address] [place] [address] Care Team Providers Care Sand Buffer Name Role Phone Name, Yung MENDEZ Primary Care Provider [phone] Reason for Visit * Reason Onset Date Comments Nurse Triage 11/04/2024 Encounter Details Date Type Department Care Team ([facility] st Contact Info) Description 11/04/2024 Telephone [facility] MEDICINE [address] [place], [place] [phone] Name, MD Yung [address] [place] [address] Nurse Triage Social History Tobacco Use Types [...] home care suggested and will come to [facility] if needed. Protocol Used: Headache [...] acuity questions The caller accepted this outcome. [id number] documented in this encounter Plan of Treatment Not on file documented as of this encounter Visit Diagnoses Not on filedocumented in this encounter Additional Health Concerns Assessment Noted Time PHQ-9 Depression Total Score: 15 025 11:44 AM EDT documented as of this encounter Care Teams Sand Buffer Relationship Specialty Start Date End Date Name, MD Yung [address] [place] [address] PCP - General Internal Medicine 10/23/23 documented as of this encounter
--- OUTSIDE RECORDS SUMMARY | 2025-03-27 10:29 | XMS_ITS | Clinical Summary ---
Author Organization [employer] Address [address] [facility] [address] [place] [address] Care Team Providers Care Packaging Machine Supplies Distributor Name Role Phone Name, Yung MENDEZ Primary Care Provider [phone] Allergies No known active allergies Medications * [...] D level 10/16/2024 Moderate recurrent major depression ([facility]) FRANCISCO JAVIER (generalized anxiety disorder) 08/30/2024 Morbid obesity with BMI of 60.0-69.9, adult ([facility]) 11/01/2023 Acute otitis externa 04/12/2018 Elevated liver enzymes 11/01/2017 Dystrophia unguium 11/01/2017 Hyperuricemia 01/03/2017 Vitamin D deficiency 01/03/2017 Positive BREN (antinuclear antibody) 01/03/2017 Mood disorder 11/04/2016 Mild intermittent asthma 11/04/2016 Migraine 11/04/2016 Hyperlipidemia 11/04/2016 Benign essential hypertension 11/04/2016 Aphakia 11/04/2016 Anemia 11/04/2016 Acquired hypothyroidism 11/04/2016 Seasonal allergic rhinitis 11/04/2016 Multiple joint pain 11/04/2016 Encounters Date Type Department Care Team Description 03/24/2025 Telephone [facility] [address] [place] [address] [id number] Yung Lindo MD 03/17/2025 Telephone [facility] [address] [place] [address] [phone] Yung Lindo MD Chart Prep 03/15/2025 Refill [facility] [address] [place] [address] [phone] Yung Lindo MD Hyperlipidemia, unspecified hyperlipidemia type; Mild intermittent asthma, unspecified whether complicated 03/03/2025 Telephone [facility] [address] [place] [address] [phone] Yung Lindo MD TelephoneCall 01/28/2025 Telephone [facility] [address] [place] [address] [phone] Yung Lindo MD 01/21/2025 3:00 PM EDT Clinical Support [facility] DIABETES/NUTRITION [address] [place] [address] Mood disorder ([facility]) (Primary Dx) 01/09/2025 2:00 PM EDT Office Visit [facility] OPTOMETRY [address] [place] [phone] Sawyer, Deanna, OD Total retinal detachment, left (Primary Dx); Sensory deprivation exotropia of left eye; Dry eyes; Blindness left eye category 5, normal vision right eye; Presbyopia 01/09/2025 Travel from Last 3 Months Immunizations Immunization [...] 3:17 PM EDT) Triglycerides 146 <150 mg/dL [facility] Comment:Desirable Triglyceri de: less than 150 mg/dLBorderline High Triglyceride 150-199 mg/dLHigh Triglyceride: 200-499 mg/dLVery High Triglyceride: greater than or equal to 5OO mg/dL Cholesterol 215(H) <200 mg/dL [facility] Comment:Desirable Cholestero l: less than 200 mg/dLBorderline High Cholesterol: 200-239 mg/dLHigh Cholesterol: greater than 239 mg/dL LDL Cholesterol Calculated 139(H) <100 mg/dL [facility] Comment:Desirable LDL: less than 100 mg/dLNear Optimal/Above Optimal LDL: 110- 129 mg/dLBorderline High LDL: 130-159 mg/dLHigh LDL: 160-189 mg/dLVery High LDL: greater than or equal to 190 mg/dL HDL Cholesterol 47 >40 mg/dL [facility] Comment:Desirable HDL: great er than 40 mg/dL Note: This HDL assay may give artificially low results in patients with liver disease. Blood Venous blood specimen / Unknown 10/11/2024 3:17 PM EDT 10/11/2024 4:05 PM EDT us Yung Lindo MD LAB BLOOD ORDERABLES Final Resul t [facility] [address] [place] [address] [phone] from Last 3 Months or Most Recently Relevant to Health Maintenance Insurance [facility] C3 [facility] MEDICAID STAND ADULT Advance Directives Documents on File Type Date Recorded Patient Slag Expander Expl anation Advance Directives and Living Will 09/03/2024 2:00 PM Health Care Proxy Care Teams Packaging Machine Supplies Distributor Relationship Specialty Start Date End Date Name, MD Yung [address] [place] [address] PCP - General Internal Medicine 10/23/23
--- OUTSIDE RECORDS SUMMARY | 2025-03-27 10:29 | XMS_ITS | Encounter Summary ---
Author Organization [employer] Address [address] [place] [address] Care Team Providers Care Insulator Cutter And Former Name Role Phone Name, Yung MENDEZ Primary Care Provider [phone] Encounter Details Date Type Department Care Team ([facility] st Contact Info) Description 03/24/2025 Telephone [facility] [address] [place], [place] [phone] Name, MD Yung [address] [place] [address] Social History Tobacco Use Types Packs/Day Years [...] encounter Miscellaneous Notes * Telephone Encounter - Molly Foy - 03/24/2025 9:36 AM EST Pt currently getting liners from [employer]; requesting diapers and bed pads. Please advise if agree. Thank you documented in this encounter Plan of Treatment Not on file documented as of this encounter Visit Diagnoses Not on filedocumented in this encounter Additional Health Concerns Assessment Noted Time PHQ-9 Depression Total Score: 15 025 11:44 AM EDT documented as of this encounter Care Teams Insulator Cutter And Former Relationship Specialty Start Date End Date Name, MD Yung [address] [place] [address] PCP - General Internal Medicine 10/23/23 documented as of this encounter
== END 2025-03-24 09:22 | disposition home or self-care (01) ==
LOC: HO.HOSX 09:21
PROVIDERS: Visit Provider Physician Assistant
DX: M17.0 Bilateral primary osteoarthritis of knee (principal)
CPT/HCPCS: 20610; 73560; J0665; J1100; J2003